=== PATIENT | female | born 1955 | race Caucasian/White ===

== ENCOUNTER 2022-03-05 17:53 | Inpatient (IN) | payer MEDICARE, BC, SELFPAY ==
[2022-03-05] VITALS (14 sets, daily range): BP systolic 131–163; BP diastolic 51–85; PULSE 68–87; RESP 11–18; TEMP 36.4–37.2; O2SAT 92–100; BMI 30.5; BMI 33.7
--- NOTE | 2022-03-05 15:17 | P.HP_ITS ---
H&P: HPI History of Present Illness Date/Time: 03/05/22 15:17 Chief Complaint: Surgical site abscess right arm Narrative: this site was operated 02/24/2022 in my office for removal of the basal cell carcinoma measuring nearly 2 cm in diameter. The wound was closed directly. In the next couple of days the patient began to have swelling and redness that exceeded the operative site. She has had some purulence drainage. She has been started on Bactrim on March 02 and has had approximately 6 doses. She thought it made her feel better. Today she came to my office for follow-up evaluation and had persistence of cloudy drainage. Sutures were removed and some pus was drained. Cultures were sent to [facility] for aerobes. The site was copiously irrigated but it seemed that the extent of the cellulitis and possibly the abscess that exceeded a reach without anesthesia. She agreed to go to the operating room today and to have this further explored and drained under general anesthesia. She is aware that an additional dependent drain site may be needed. is possible she may need to stay in hospital overnight for more. She her had plans to go to [facility] and 5 days and then may need to cancel that. Review of Systems Review of Systems: The patient is otherwise healthy and very active. PMFSH Comments She this patient has no known allergies to medication. She currently takes escitalopram 5 mg once daily. And atorvastatin 20 mg once daily. She has had no other surgeries. She was diagnosed with Guillain-[place] syndrome in 1991. And recovered Exam Narrative: This patient is alert and cooperative. She had had some emesis a few days ago. She has not had any fever. The right arm is moderately swollen. There is moderate erythema and distal half. There is local tenderness. The 5 cm surgical site has been partially reopened. There remains some purulence of phlegmonous tissue within the wound. Her hand functions normally and she is able to flex and extend the elbow. She was able to tolerate multiple compressions and irrigations in attempt to remove the pus. Assessment and Plan Assessment and plan (1) Surgical site infection: Code(s): T81.49XA - Infection following a procedure, other surgical site, initial encounter Status: Acute Assessment and Plan: Pt is on day 4 of Bactrim. (2) Abscess of arm, right: Code(s): L02.413 - Cutaneous abscess of right upper limb Status: Acute Plan I&D in the OR under general anesthesia.
[2022-03-05] MEDS: LACTATED RINGERS 1,000 ML 30 ML IV CONT ×2 (15:50→17:29)
--- NOTE | 2022-03-05 15:58 | WPDANESEPPF ---
Anes - Initial Pre Proc Eval Procedure: Operation Date: 03/05/22 16:00 Proposed Procedures p Incision and Drainage Right Arm - Gen Botello MD Date/Time: 03/05/22 15:58 Surgeon: Gen Botello MD Pre Op Diagnosis: abscess right arm Patient Data Age: 66 Gender: F Height: Weight: Last Vital Signs Temp 36.4 C 03/05/22 15:40 Pulse 82 03/05/22 15:40 Resp 16 03/05/22 15:40 BP 143/56 H 03/05/22 15:40 Pulse Ox 99 03/05/22 15:40 O2 Del Method Room Air 03/05/22 15:40 Allergies Allergy/AdvReac Type Severity Reaction Status Date / Time No Known Allergies Allergy Verified 03/05/22 15:48 Patient hx anesthesia problems: none Family hx anesthesia problems: none Results Review: All pre-operative results and documents have been reviewed as part of the pre-operative evaluation. FOR[facility]LY [facility] Past Medical History Medical History (Updated 03/05/22 @ 15:58 by Dom Fitzgerald MD) Obesity Surgical History Surgical History (Updated 03/05/22 @ 15:58 by Dom Fitzgerald MD) H/O colonoscopy Anes - Eval Final PreProcedure Day of Procedure 03/05/22 15:58 Patient weight: obese Heart: regular rate and rhythm Lungs: clear to auscultation Airway: Mallampati scale class II Neurological: alert and oriented Last oral intake: 6 hours ASA classification: II Emergent: no Anesthetic plan: proceed Anesthesia type and monitoring: general ETT and standard monitoring Results Review: All pre-operative results and documents have been reviewed as part of the pre-operative evaluation. Informed Consent: The patient's anesthetic plan and its attendant risks and benefits were discussed with the patient/family/POA. Questions were solicited and answers provided to the satisfaction of the patient/family/POA.
[2022-03-05] MEDS: LIDO 2%/EPINEPHRINE 1:100,000 50 ML VIAL 10 ML INFILTRATE (16:29)
--- NOTE | 2022-03-05 17:10 | W.PM.PROC2 ---
Procedure Note - Detailed Date of Procedure 03/05/22 Pre-op Diagnosis abscess right arm Post-op Diagnosis Same Procedure Performed I&D extensive subcutaneous abscess right lateral and posterior arm. Surgeon Gen Botello MD Anesthesia General Indications abscess Description of Procedure The patient brought to the hospital operating room from the office today where she was seen on postop day 8 and after having had excision of a 2 cm basal cell carcinoma with immediate closure. By postop day 3 she had swelling erythema and tenderness and some small drainage. She was started on Bactrim that day the Bactrim a few days later and immediately felt better. To days later she presented with purulent drainage that we attempted to evacuate in the office. It proved to be too large to task for that setting without anesthesia. At the hospital today she was marked in the holding area on her right arm for this procedure. She was taken to the operating room placed supine on the operating table. She was given general endotracheal anesthesia. The extremity is prepped and draped in usual fashion. No tourniquet was utilized. The remaining sutures removed from the surgical site these were buried Vicryl that seemed to be intact. Despite the drainage of about 15 milliliter of yellow pus in the office, an additional equal amount was drained at surgery. This was divided into 3 areas. Two of these required counter incisions to access and irrigate. No cultures were taken from the OR. She was given vancomycin 1 g preop . After removing sutures from the surgical site the pus was drained and the pocket digitally examined. This was found to extend 2.5 cm cephalad to the skin wound margin but more than that distally. I was able to track that to a site about 3 cm above the olecranon where it seemed to stop. A vertical counter incision was made there. This area was then irrigated and surfaces debrided with Ray-Domingo sponges. An area of induration more laterally was identified. A 1 and 1/2 cm incision was made at that site and pus was encountered. This wound was extended to about 3 cm and was eventually connected with the other wounds by digital dissection through subcutaneous tissue. All the sites were irrigated wiped with Ray-Domingo sponges and aspirated with the Sarthakkauer sucker. No tourniquet was utilized. Some bleeding points were cauterized from the skin edges. 3 ft of 1 in iodoform gauze was placed as a single piece, subcutaneously connecting all of these sites. ABDs and Kerlix sponges and roll were placed over that, no Griffin wrap. She was extubated the sponge count were correct and she was discharged from the operating to the PACU. Estimated Blood Loss 50 Tourniquet Time 0 Drains No Packing Yes (3 feet of 1 in Iodoform gauze in 1 piece.) Pathology Other (Culture pending at [facility] from today at my office.) Complications No immediate complications Condition Stable Disposition PACU
[2022-03-05] MEDS: MIDAZOLAM HCL (*CRX) 2 MG/2 ML VIAL 1 MG IV PUSH (17:12)
[2022-03-05] MEDS: fentaNYL CITRATE INJ (*CRX) 100 MCG/2 ML VIAL 25 MCG IV PUSH ×8 (17:17→18:24)
--- NOTE | 2022-03-05 20:21 | ADMGEN ---
This patient, Carrie Cisneros, was admitted to Medical Room 342-01. Patient/family oriented to hospital policies and general routines including ID bracelet, bed and alarms, visiting hours, pain management, procedures, bathroom and other care routines, personal items, smoking policy, room service/diet, and visiting hours. Information on how to activate the Rapid Response Team has been discussed. Patient/Family are encouraged to report perceived risks to care and to ask questions if they do not understand what they are told or what they should do.
[2022-03-05 20:33] LABS: Estimated CRCL calculation 63 ml/min; Estimated Glomerular Filt Rate > 60
[2022-03-05] MEDS: ACETAMINOPHEN 325 MG TABLET 650 MG PO (20:38)
[2022-03-05] MEDS: ceFAZolin 2 GM/D5W 50 ML 2 GM/50 ML BAG IVPB (20:39)
[2022-03-05] MEDS: LACTATED RINGERS 1,000 ML 100 ML IV CONT (20:39)
[2022-03-06 00:20] VITALS: BP 112/53; PULSE 65; RESP 18; TEMP 36.6; O2SAT 95
[2022-03-06] MEDS: ceFAZolin 2 GM/D5W 50 ML 2 GM/50 ML BAG IVPB ×3 (04:01→22:21)
[2022-03-06] MEDS: ACETAMINOPHEN 325 MG TABLET 650 MG PO ×4 (04:50→23:30)
[2022-03-06 05:09] VITALS: BP 118/76; PULSE 73; RESP 18; TEMP 36.6; O2SAT 97
[2022-03-06 05:40] LABS: Basophils Percent Auto 0.3 % (0.2-1.2); Eosinophils Percent Auto 0.1 % (0-4.4); Hematocrit 31.3 % (37.0-47.0); Hemoglobin 10.3 g/dL (12.0-15.0); Immature Granulocyte Absolute 0.16 K/mm3 (0.00-0.031); Immature Granulocyte Percent A 1.4 % (0-0.5); Lymphocytes Absolute Auto 1.46 K/mm3 (0.9-3.2); Lymphocytes Percent Auto 12.7 % (18.3-44.2); Mean Corpuscular HGB Conc 32.9 g/dl (32-36); Mean Corpuscular Volume 91.3 fl (80-100); Mean Platelet Volume 9.5 fl (7.4-10.4); Monocytes Absolute Auto 0.5 K/mm3 (0.1-0.6); Monocytes Percent Auto 4.4 % (2.6-8.5); Neutrophils Absolute Auto 9.3 K/mm3 (1.3-6.7); Neutrophils Percent Auto 81.1 % (45.5-73.1); Platelet Count Result 334 k/mm3 (150-375); Red Blood Count 3.43 M/mm3 (4.2-5.4); Red Cell Distribution Width 12.3 % (11.5-14.5); White Blood Count 11.5 K/mm3 (4.5-10.0)
--- NOTE | 2022-03-06 07:19 | WPDPN ---
Progress Note: A&P Assessment and Plan (1) Abscess of arm, right: Code(s): L02.413 - Cutaneous abscess of right upper limb Status: Acute Assessment and Plan: With a history of excision of ulcerated BCC as a possible source of infection, I believe coverage for E. coli is indicated until culture results are available. Will add Zosyn and consult Pharmacy. (2) Surgical site infection: Code(s): T81.49XA - Infection following a procedure, other surgical site, initial encounter Status: Acute Time Spent With Patient Time with patient: less than 15 minutes Subjective Date/time seen: 03/06/22 07:19 Interval history: Pt reports feeling much better today. Moves hand and elbow freely. No problems from general anesthesia. Exam Narrative: Afebrile. WBC 11.5 No significant overnight drainage. [place] spotting. Culture pending from my office 03/05. Tolerating IV Vanco and Cefazolin. Objective Data Vital Signs Vital Signs: Vital Signs - 24 hr 03/05/22 15:40 03/05/22 17:03 03/05/22 17:15 Temperature 97.6 F 98 F Pulse Rate 82 86 73 Respiratory Rate 16 14 11 L Blood Pressure 143/56 H 163/72 H 156/82 H Pulse Oximetry 99 99 100 Oxygen Delivery Room Air Simple Face Mask Simple Face Mask Oxygen Flow Rate 10 10 03/05/22 17:35 03/05/22 17:50 03/05/22 18:05 Temperature Pulse Rate 76 71 69 Respiratory Rate 11 L 15 11 L Blood Pressure 149/85 H 143/75 H 150/75 H Pulse Oximetry 92 99 99 Oxygen Delivery Room Air Nasal Cannula Nasal Cannula Oxygen Flow Rate 2 2 03/05/22 18:22 03/05/22 18:35 03/05/22 18:50 Temperature Pulse Rate 71 68 69 Respiratory Rate 12 11 L 12 Blood Pressure 150/85 H 149/79 H 135/79 Pulse Oximetry 99 97 98 Oxygen Delivery Room Air Nasal Cannula Nasal Cannula Oxygen Flow Rate 2 2 03/05/22 19:05 03/05/22 20:29 03/05/22 19:43 Temperature 98.2 F Pulse Rate 69 72 Respiratory Rate 14 18 Blood Pressure 140/78 131/72 Pulse Oximetry 99 100 Oxygen Delivery Nasal Cannula Room Air Oxygen Flow Rate 2 03/05/22 19:58 03/05/22 20:28 03/05/22 21:20 Temperature 98.5 F 98.1 F 99 F Pulse Rate 75 87 76 Respiratory Rate 18 18 16 Blood Pressure 149/77 H 140/61 132/51 L Pulse Oximetry 98 95 93 Oxygen Delivery Oxygen Flow Rate 03/06/22 00:20 03/06/22 05:09 Temperature 97.9 F 97.9 F Pulse Rate 65 73 Respiratory Rate 18 18 Blood Pressure 112/53 L 118/76 Pulse Oximetry 95 97 Oxygen Delivery Oxygen Flow Rate Intake/Output Intake/Output: Intake & Output 03/03/22 03/04/22 03/05/22 03/06/22 23:59 23:59 23:59 23:59 Intake Total 1100 500 Output Total 400 Balance 1100 100 Meds/Results Medications: Active Medications Generic Name Dose Route Start Last Admin Trade Name Freq PRN Reason Stop Dose Admin Acetaminophen 650 mg 03/05/22 19:14 03/06/22 04:50 Acetaminophen 325 Mg Tablet PO 650 mg Q4H PRN Administration Mild Pain (1-3) or Fever Hydrocodone Bitart/Acetaminophen 1 tab 03/05/22 19:14 Hydrocodone/Acetaminophen (*Crx) 5-325 Mg Tablet PO Q4H PRN Moderate Pain (4-6) Atorvastatin Calcium 20 mg 03/06/22 09:00 Atorvastatin 20 Mg Tablet PO DAILY CHARIS Lactated Ringer's 1,000 mls @ 100 mls/hr 03/05/22 19:14 03/05/22 20:39 Lr - Lactated Ringers Iv IV CONT 100 mls/hr .Q10H CHARIS Administration Cefazolin Sodium 2 gm in 50 mls @ 100 mls/hr 03/05/22 21:00 03/06/22 04:31 Ancef 2 Gm/D5w 50 Ml IVPB Infused Q8H CHARIS Infusion Vancomycin HCl 1,250 mg in 250 mls @ 200 mls/hr 03/06/22 04:00 03/06/22 05:57 Vancomycin 1,250 Mg/D5w 250 Ml IVPB Infused Q18H CHARIS Infusion Morphine Sulfate 2 mg 03/05/22 19:14 Morphine Sulfate (*Crx) 2 Mg/Ml Inj IV PUSH Q4H PRN Pain Rated 7-10 Ondansetron HCl 4 mg 03/05/22 19:14 Ondansetron Inj 4 Mg/2 Ml Vial IV PUSH Q6H PRN Nausea And Vomiting Labs Labs: Laboratory Results - last 24 hr
[2022-03-06 08:00] VITALS: BP 119/57; PULSE 63; RESP 18; TEMP 36.8; O2SAT 96
[2022-03-06] MEDS: LACTATED RINGERS 1,000 ML 100 ML IV CONT (08:29)
[2022-03-06] MEDS: ATORVASTATIN 20 MG TABLET PO (08:30)
--- NOTE | 2022-03-06 08:34 | IDPHARM ---
Subjective Pharmacy was consulted by Usha Botello regarding infectious diseases for Carrie Cisneros. Carrie Cisneros is a 66 year old F with concerns regarding an abscess that has undergone drainage in the arm. Background The patient is currently receiving Cefazolin/Zosyn/Vancomycin. The patient's PMH includes this abscess occurring quite quickly after a carcinoma from being removed from the area per the provider. Additionally, the patient underwent drainage for this abscess yesterday 03/05 and also had drainage done in the outpatient side as well on 03/05. Of note, the outpatient visit resulted in some pus drainage and swab of that being sent to [facility] for culturing. Discussed with [facility] as currently I am unable to see the culture in [facility]. Culture is located under Micro#[id number] when speaking to the Micro dept. for [facility] [employer]. Currently no results, the do expect preliminary results 11/5 AM. WBC 11.5, CrCl 63 mL/min. Assessment/Recommendation/Discussion Discussed with provider regarding this patient. Of note, E coli and MRSA are desired to be covered and as Pseudomonal coverage was not needed provide agreed that ceftriaxone 2g daily would be appropriate for this patient over Zosyn. Will follow up on this culture (Micro # [id number]) and look to further discuss level of source control and potential discharge/de-escalation options at that time with provider. Unsure on provider's desired duration of cefazolin, given other coverages initiated, extending beyond 24 hours post-op may be unnecessary given the ceftriaxone and vancomycin. Thank you for the interesting consult. Matt Christine, PharmD Infectious Disease/Antimicrobial Stewardship Pharmacist 03/06/22; 0834
[2022-03-06] MEDS: cefTRIAXone 2 GM in SODIUM CHLORIDE 0.9% IV 100 ML 200 ML IVPB (10:53)
[2022-03-06 14:00] VITALS: BP 131/53; PULSE 74; RESP 16; TEMP 36.9; O2SAT 99
--- NOTE | 2022-03-06 14:40 | WPDANESPN ---
Anes - Prog Note Post-Op Date/Time: 03/06/22 14:40 Cardiovascular status: normal Respiratory status: normal Airway patency: baseline Mental status: baseline Post-Op hydration status: normal Vital Signs: Last Vital Signs Temp 36.8 C 03/06/22 08:00 Pulse 63 03/06/22 08:00 Resp 18 03/06/22 08:00 BP 119/57 L 03/06/22 08:00 Pulse Ox 96 03/06/22 08:00 O2 Del Method Room Air 03/06/22 08:00 O2 Flow Rate 2 03/05/22 19:05 Pain Score (VAS): 06/12 I/O: Intake & Output 03/05/22 03/06/22 03/06/22 23:59 07:59 15:59 Intake Total 1100 1500 1110 Output Total 400 Balance 1100 1100 1110 Laboratory Tests 03/06/22 05:25 03/05/22 20:17 03/05/22 03/06/22 20:17 05:25 WBC 11.5 H RBC 3.43 L Hgb 10.3 L Hct 31.3 L MCV 91.3 MCH 30.0 MCHC 32.9 RDW 12.3 Plt Count 334 MPV 9.5 Immature Gran % (Auto) 1.4 H Neut % (Auto) 81.1 H Lymph % (Auto) 12.7 L [place] % (Auto) 4.4 Eos % (Auto) 0.1 Baso % (Auto) 0.3 Lymph # (Auto) 1.46 [place] # (Auto) 0.5 Eos # (Auto) 0.0 Baso # (Auto) 0.0 Abs Immat Gran (auto) 0.16 H Absolute Neuts (auto) 9.3 H Absolute Nucleated RBC 0.0 Nucleated RBC % 0.0 Creatinine 0.80 Estim Creat Clear Calc 63 Estimated GFR > 60 Post-procedural complaints: none Patient Feedback: Patient satisfied with anesthetic care.
--- NOTE | 2022-03-06 16:20 | PC.NURSE ---
Drainage to wound seeping through the initial dressing by Rosmery. RN reinforced dressing with gauze pads, abd, and gauze rolls. Pt to get wash out and dressing change of the wound by Rosmery tomorrow at 0730.
[2022-03-06 19:16] VITALS: BP 110/73; PULSE 72; RESP 18; TEMP 37; O2SAT 98
[2022-03-07] VITALS (14 sets, daily range): BP systolic 122–151; BP diastolic 60–76; PULSE 56–75; RESP 10–18; TEMP 35.3–36.6; O2SAT 94–100
[2022-03-07] MEDS: ceFAZolin 2 GM/D5W 50 ML 2 GM/50 ML BAG IVPB (05:50)
--- NOTE | 2022-03-07 07:40 | WPDANESEPPF ---
Anes - Initial Pre Proc Eval Procedure: Operation Date: 03/05/22 16:00 Proposed Procedures p Incision and Drainage Right Arm - Gen Botello MD Operation Date: 03/07/22 07:30 Proposed Procedures p Washout and Dressing Change Right Arm - Gen Botello MD Date/Time: 03/07/22 07:40 Surgeon: Gen Botello MD Pre Op Diagnosis: abscess right arm Patient Data Age: 66 Gender: F Height: 1.6 m Weight: 86.5 kg Last Vital Signs Temp 36.6 C 03/07/22 04:21 Pulse 67 03/07/22 04:21 Resp 18 03/07/22 04:21 BP 130/66 03/07/22 04:21 Pulse Ox 96 03/07/22 04:21 O2 Del Method Room Air 03/06/22 20:00 O2 Flow Rate 2 03/05/22 19:05 Allergies Allergy/AdvReac Type Severity Reaction Status Date / Time No Known Allergies Allergy Verified 03/05/22 15:48 Home Medications Medication Instructions Recorded Confirmed Type atorvastatin 20 mg tablet 20 mg PO DAILY 03/05/22 03/05/22 History sulfamethoxazole 800 1 tablet PO BID 03/05/22 03/05/22 History mg-trimethoprim 160 mg tablet Patient hx anesthesia problems: none Family hx anesthesia problems: none Results Review: All pre-operative results and documents have been reviewed as part of the pre-operative evaluation. [facility] Past Medical History Medical History Obesity Surgical History Surgical History H/O colonoscopy Family History Family History Father Acute myocardial infarction History of blood clots Congestive heart failure Diabetes mellitus Sibling Acute myocardial infarction Cerebrovascular accident Colon cancer Uterine cancer Mother Congestive heart failure Diabetes mellitus Hypertension Breast cancer Social History Social History Smoking status: Never smoker Alcohol intake: never Substance use: never Has the Lack of Transportation Kept You From Medical Appointments or From Getting Medications?: No Within the Past 12 Months, Were You Worried Whether Your Food Would Run Out Before You Got Money to Buy More?: Never True What is Your Housing Situation Today?: I Have Housing Are You Worried That in the Next 2 Months, You May Not Have Your Own Housing to Live In?: No Do You Have Trouble Paying Your Heating Or Electricity Bill?: No Do You Have Trouble Paying For Medicines?: No Are You Currently Unemployed and Looking for Work?: No Highest Level of Education Completed: High School Diploma/GED Do You Have Trouble With Childcare or the Care of a Family Member?: No Spiritual care concerns: No Anes - Eval Final PreProcedure Day of Procedure 03/07/22 07:40 Patient weight: obese Heart: regular rate and rhythm Lungs: clear to auscultation Airway: Mallampati scale class II Neurological: alert and oriented Last oral intake: >/= 8 hours ASA classification: II Emergent: no Anesthetic plan: proceed Anesthesia type and monitoring: general LMA and standard monitoring Results Review: All pre-operative results and documents have been reviewed as part of the pre-operative evaluation. Informed Consent: The patient's anesthetic plan and its attendant risks and benefits were discussed with the patient/family/POA. Questions were solicited and answers provided to the satisfaction of the patient/family/POA.
--- NOTE | 2022-03-07 07:42 | WPDPN ---
Progress Note: A&P Assessment and Plan (1) Abscess of arm, right: Code(s): L02.413 - Cutaneous abscess of right upper limb Status: Acute Plan Second washout and dressing change under general anesthesia. Time Spent With Patient Time with patient: less than 15 minutes Subjective Date/time seen: 03/07/22 07:42 Interval history: Pt feeling well today. No significant drainage from wound . Pain has been easily controlled past 24 hrs by Tylenol Objective Data Vital Signs Vital Signs: Vital Signs - 24 hr 03/06/22 08:00 03/06/22 08:00 03/06/22 14:00 Temperature 98.3 F 98.5 F Pulse Rate 63 74 Respiratory Rate 18 16 Blood Pressure 119/57 L 131/53 L Pulse Oximetry 96 99 Oxygen Delivery Room Air 03/06/22 19:16 03/06/22 20:00 03/07/22 04:21 Temperature 98.6 F 97.8 F Pulse Rate 72 67 Respiratory Rate 18 18 Blood Pressure 110/73 130/66 Pulse Oximetry 98 96 Oxygen Delivery Room Air Intake/Output Intake/Output: Intake & Output 03/04/22 03/05/22 03/06/22 03/07/22 23:59 23:59 23:59 23:59 Intake Total 1100 3150 50 Output Total 600 250 Balance 1100 2550 -200 Meds/Results Medications: Active Medications Generic Name Dose Route Start Last Admin Trade Name Freq PRN Reason Stop Dose Admin Acetaminophen 650 mg 03/05/22 19:14 03/06/22 23:30 Acetaminophen 325 Mg Tablet PO 650 mg Q4H PRN Administration Mild Pain (1-3) or Fever Hydrocodone Bitart/Acetaminophen 1 tab 03/05/22 19:14 Hydrocodone/Acetaminophen (*Crx) 5-325 Mg Tablet PO Q4H PRN Moderate Pain (4-6) Atorvastatin Calcium 20 mg 03/06/22 09:00 03/06/22 08:30 Atorvastatin 20 Mg Tablet PO 20 mg DAILY CHARIS Administration Fentanyl Citrate 25 mcg 03/07/22 07:40 Fentanyl Citrate Inj (*Crx) 100 Mcg/2 Ml Vial IV PUSH Q2M PRN Pain Cefazolin Sodium 2 gm in 50 mls @ 100 mls/hr 03/05/22 21:00 03/07/22 06:29 Ancef 2 Gm/D5w 50 Ml IVPB Infused Q8H CHARIS Infusion Vancomycin HCl 1,250 mg in 250 mls @ 200 mls/hr 03/06/22 04:00 03/06/22 23:35 Vancomycin 1,250 Mg/D5w 250 Ml IVPB Infused Q18H CHARIS Infusion Ceftriaxone Sodium 2 gm/ 100 mls @ 200 mls/hr 03/06/22 09:00 03/06/22 11:40 Sodium Chloride IVPB Infused Q24H CHARIS Infusion Lactated Ringer's 1,000 mls @ 30 mls/hr 03/07/22 07:40 Lr - Lactated Ringers Iv IV CONT .Q24H CHARIS Lactated Ringer's 1,000 mls @ 30 mls/hr 03/07/22 07:40 Lr - Lactated Ringers Iv IV CONT .Q24H [facility] Morphine Sulfate 2 mg 03/05/22 19:14 Morphine Sulfate (*Crx) 2 Mg/Ml Inj IV PUSH Q4H PRN Pain Rated 7-10 Ondansetron HCl 4 mg 03/05/22 19:14 Ondansetron Inj 4 Mg/2 Ml Vial IV PUSH Q6H PRN Nausea And Vomiting Ondansetron HCl 4 mg 03/07/22 07:40 Ondansetron Inj 4 Mg/2 Ml Vial IV PUSH ONCE PRN Nausea
[2022-03-07] MEDS: LACTATED RINGERS 1,000 ML 30 ML IV CONT (07:55)
[2022-03-07] MEDS: fentaNYL CITRATE INJ (*CRX) 100 MCG/2 ML VIAL 25 MCG IV PUSH ×7 (09:04→09:38)
--- NOTE | 2022-03-07 09:10 | W.PM.PROC2 ---
Procedure Note - Detailed Date of Procedure 03/07/22 Pre-op Diagnosis abscess right arm Post-op Diagnosis Same Procedure Performed Second washout and dressing change, subcutaneous abscess of the right arm Surgeon Gen Botello MD Assistant Director Of [employer] [place] Anesthesia General Indications 10 x 20 cm subcutaneous abscess the right arm Description of Procedure The patient was greeted in the PACU prior to today's surgery and the site was marked. She indicated that she was quite comfortable. Her arm felt much better. She was taken to the operating room where she was placed supine on the operating table and she was given general endotracheal anesthesia. The extremity was prepped and draped in usual fashion. No tourniquet was used. The existing dressing was removed. A small amount of purulence drained from the most dependent aspect of the larger wound. The 3 skin openings were irrigated with approximately 1000 L of saline. The jacobs of abscess were debrided with Raytec sponges. Another L of saline was irrigated through these areas. It appeared that the original wound lay most posterior. Phlegmonous tissue was found proximal to that and there was less integrity of tissue to digital exploration. We made 1 additional counter incision approximately 2 cm in length over the most superior aspect of that portion of the cavity. The purpose was to allow placement of a [place] drain in that area to prevent collection of purulence at bed rest. Approximately 4 L of solution were irrigated through these wounds with frequent Kerlix sponge debridement. We also used the larger angled curette to scrape the jacobs. When I was satisfied that there was no loose debris left in this subcutaneous space we selected dressings. There are 2 pieces of 1 in iodoform gauze. 1 connects the most distal to the most anterior counter incisions placed at the last surgery. There is approximately 3 ft of gauze in that and the ends were tied together outside the skin. The 2nd piece of 1 in iodoform was placed in the larger original abscess site and passed in layers in 2 directions to partially fill cavernous tracks in the direction of 2 aforementioned counter incisions. This piece of iodoform was visible only through the larger original wound and is expected to be removed from that site. There was approximately 4 ft of iodoform comprising that piece. A 1 in [place] drain was passed through the larger wound and exited from the new superior counter incision and tied to itself outside the skin. There was no continuous bleeding. Estimated blood loss was around 50 milliliter. Estimated Blood Loss 50 Tourniquet Time 0 Urine Output 250 Drains Yes Packing Yes Pathology None sent Complications No immediate complications Condition Stable Disposition PACU
[2022-03-07] MEDS: HYDROmorphone HCL INJ (*CRX) 1 MG/ML SYR 0.25 MG IV PUSH ×6 (09:35→10:07)
[2022-03-07] MEDS: cefTRIAXone 2 GM in SODIUM CHLORIDE 0.9% IV 100 ML 200 ML IVPB (12:02)
[2022-03-07] MEDS: ACETAMINOPHEN 325 MG TABLET 650 MG PO (16:58)
[2022-03-07] MEDS: ONDANSETRON INJ 4 MG/2 ML VIAL IV PUSH (20:11)
[2022-03-07] MEDS: HYDROcodone/acetaminophen (*CRX) 5-325 MG TABLET 1 TAB PO (20:12)
--- NOTE | 2022-03-08 01:36 | PC.NURSE ---
Daylight Savings Time For Daylight Savings Time Ending in the Fall - Clocks are moved back. For Daylight Savings Time Beginning in the Spring - Clocks are moved ahead. For [facility], the time of change occurs at 0200 hrs. Time is taken from the field observer. This entry on the patient's chart recognizes the change in time reflected during documentation. Example: 2 entries for vital signs may be charted for 0200 hrs.
[2022-03-08] MEDS: HYDROcodone/acetaminophen (*CRX) 5-325 MG TABLET 1 TAB PO ×3 (04:23→21:56)
[2022-03-08] MEDS: ONDANSETRON INJ 4 MG/2 ML VIAL IV PUSH (04:24)
[2022-03-08 04:47] VITALS: BP 128/63; PULSE 79; RESP 18; TEMP 36.6; O2SAT 96
[2022-03-08] MEDS: ATORVASTATIN 20 MG TABLET PO (09:33)
[2022-03-08] MEDS: cefTRIAXone 2 GM in SODIUM CHLORIDE 0.9% IV 100 ML 200 ML IVPB (09:35)
--- NOTE | 2022-03-08 13:18 | WPDPN ---
Progress Note: A&P Assessment and Plan (1) Abscess of arm, right: Code(s): L02.413 - Cutaneous abscess of right upper limb Status: Acute Assessment and Plan: Area well drained. Concerned for phlegmonous tissue lining the jacobs. Will likely need additional washout and dressing change. Time Spent With Patient Time with patient: less than 15 minutes Subjective Date/time seen: 03/08/22 13:18 Interval history: Has more pain today and has been taking hydrocodone. Taking diet well. Exam Narrative: Dressing has been changed a couple times since surgery. No erythema. Sensation intact to all areas. Hand and arm move well. Dressing changed by me. Some bloody drainage in the most dependent, larger wound. 8 inches of 1inch Iodoform pulled out painlessly from that area. No areas of induration identified. Will check in office today for culture results. Objective Data Vital Signs Vital Signs: Vital Signs - 24 hr 03/07/22 16:00 03/07/22 19:29 03/07/22 20:00 Temperature 97.9 F 97.7 F Pulse Rate 73 73 Respiratory Rate 16 18 Blood Pressure 137/67 139/63 Pulse Oximetry 100 96 Oxygen Delivery Room Air 03/08/22 04:47 Temperature 98 F Pulse Rate 79 Respiratory Rate 18 Blood Pressure 128/63 Pulse Oximetry 96 Oxygen Delivery Intake/Output Intake/Output: Intake & Output 03/05/22 03/06/22 03/07/22 03/08/22 23:59 23:59 23:59 22:59 Intake Total 1100 3150 800 590 Output Total 600 500 Balance 1100 2550 300 590 Meds/Results Medications: Active Medications Generic Name Dose Route Start Last Admin Trade Name Freq PRN Reason Stop Dose Admin Acetaminophen 650 mg 03/05/22 19:14 03/07/22 16:58 Acetaminophen 325 Mg Tablet PO 650 mg Q4H PRN Administration Mild Pain (1-3) or Fever Hydrocodone Bitart/Acetaminophen 1 tab 03/05/22 19:14 03/08/22 04:23 Hydrocodone/Acetaminophen (*Crx) 5-325 Mg Tablet PO 1 tab Q4H PRN Administration Moderate Pain (4-6) Atorvastatin Calcium 20 mg 03/06/22 09:00 03/08/22 09:33 Atorvastatin 20 Mg Tablet PO 20 mg DAILY CHARIS Administration Ceftriaxone Sodium 2 gm/ 100 mls @ 200 mls/hr 03/06/22 09:00 03/08/22 10:05 Sodium Chloride IVPB Infused Q24H CHARIS Infusion Vancomycin HCl 1,250 mg in 250 mls @ 200 mls/hr 03/07/22 17:00 03/08/22 05:58 Vancomycin 1,250 Mg/D5w 250 Ml IVPB Infused Q12H CHARIS Infusion Morphine Sulfate 2 mg 03/05/22 19:14 Morphine Sulfate (*Crx) 2 Mg/Ml Inj IV PUSH Q4H PRN Pain Rated 7-10 Ondansetron HCl 4 mg 03/05/22 19:14 03/08/22 04:24 Ondansetron Inj 4 Mg/2 Ml Vial IV PUSH 4 mg Q6H PRN Administration Nausea And Vomiting Labs Labs: Laboratory Results - last 24 hr 03/07/22 14:50 Vancomycin Trough 9.0 L
[2022-03-08 15:39] VITALS: BP 147/70; PULSE 82; RESP 16; TEMP 36.9; O2SAT 93
[2022-03-08 21:37] VITALS: BP 118/63; PULSE 81; RESP 14; TEMP 37.2; O2SAT 98
[2022-03-09] VITALS (12 sets, daily range): BP systolic 133–160; BP diastolic 47–79; PULSE 53–89; RESP 10–16; TEMP 36.1–37.1; O2SAT 93–100
[2022-03-09 04:27] LABS: Estimated CRCL calculation 71 ml/min; Estimated Glomerular Filt Rate > 60
[2022-03-09 05:03] LABS: Vancomycin Trough 14.8 ug/mL (10.0-20.0)
[2022-03-09] MEDS: HYDROcodone/acetaminophen (*CRX) 5-325 MG TABLET 1 TAB PO ×3 (06:02→22:12)
[2022-03-09] MEDS: ATORVASTATIN 20 MG TABLET PO (09:05)
[2022-03-09] MEDS: cefTRIAXone 2 GM in SODIUM CHLORIDE 0.9% IV 100 ML 200 ML IVPB (09:05)
[2022-03-09] MEDS: LACTATED RINGERS 1,000 ML 30 ML IV CONT ×2 (13:02→15:00)
--- NOTE | 2022-03-09 13:30 | WPDANESEPPF ---
Anes - Initial Pre Proc Eval Procedure: Operation Date: 03/05/22 16:00 Proposed Procedures p Incision and Drainage Right Arm - Gen Botello MD Operation Date: 03/07/22 07:30 Proposed Procedures p Washout and Dressing Change Right Arm - Gen Botello MD Operation Date: 03/09/22 13:30 Proposed Procedures p Washout And Dressing Change Right Upper Arm - Gen Botello MD Date/Time: 03/09/22 13:30 Surgeon: Gen Botello MD Pre Op Diagnosis: abscess right arm Patient Data Age: 66 Gender: F Height: 1.6 m Weight: 86.5 kg Last Vital Signs Temp 36.8 C 03/09/22 12:50 Pulse 79 03/09/22 12:50 Resp 16 03/09/22 12:50 BP 145/65 H 03/09/22 12:50 Pulse Ox 100 03/09/22 12:50 O2 Del Method Room Air 03/09/22 12:50 O2 Flow Rate 2 03/07/22 10:25 Allergies Allergy/AdvReac Type Severity Reaction Status Date / Time No Known Allergies Allergy Verified 03/05/22 15:48 Home Medications Medication Instructions Recorded Confirmed Type atorvastatin 20 mg tablet 20 mg PO DAILY 03/05/22 03/05/22 History sulfamethoxazole 800 1 tablet PO BID 03/05/22 03/05/22 History mg-trimethoprim 160 mg tablet Laboratory Tests 03/09/22 03/09/22 04:08 04:08 Creatinine 0.70 mg/dL mg/dL (0.7-1.0) Estim Creat Clear Calc 71 ml/min ml/min Estimated GFR > 60 (59 - ) Vancomycin Trough 14.8 ug/mL ug/mL (10.0-20.0) Patient hx anesthesia problems: none Family hx anesthesia problems: none Results Review: All pre-operative results and documents have been reviewed as part of the pre-operative evaluation. [facility] Past Medical History Medical History Obesity Surgical History Surgical History H/O colonoscopy Family History Family History Father Acute myocardial infarction History of blood clots Congestive heart failure Diabetes mellitus Sibling Acute myocardial infarction Cerebrovascular accident Colon cancer Uterine cancer Mother Congestive heart failure Diabetes mellitus Hypertension Breast cancer Social History Social History Smoking status: Never smoker Alcohol intake: never Substance use: never Has the Lack of Transportation Kept You From Medical Appointments or From Getting Medications?: No Within the Past 12 Months, Were You Worried Whether Your Food Would Run Out Before You Got Money to Buy More?: Never True What is Your Housing Situation Today?: I Have Housing Are You Worried That in the Next 2 Months, You May Not Have Your Own Housing to Live In?: No Do You Have Trouble Paying Your Heating Or Electricity Bill?: No Do You Have Trouble Paying For Medicines?: No Are You Currently Unemployed and Looking for Work?: No Highest Level of Education Completed: High School Diploma/GED Do You Have Trouble With Childcare or the Care of a Family Member?: No Spiritual care concerns: No Anes - Eval Final PreProcedure Day of Procedure 03/09/22 13:30 Patient weight: obese Heart: regular rate and rhythm Lungs: clear to auscultation Airway: Mallampati scale class II Neurological: alert and oriented Last oral intake: >/= 8 hours ASA classification: II Emergent: no Anesthetic plan: proceed Anesthesia type and monitoring: general LMA and standard monitoring Results Review: All pre-operative results and documents have been reviewed as part of the pre-operative evaluation. Informed Consent: The patient's anesthetic plan and its attendant risks and benefits were discussed with the patient/family/POA. Questions were solicited and answers provided to the satisfaction of the patient/family/POA.
--- NOTE | 2022-03-09 13:32 | WPDPN ---
Progress Note: A&P Assessment and Plan (1) Abscess of arm, right: Code(s): L02.413 - Cutaneous abscess of right upper limb Status: Acute Plan Progressing. Washout and dressing change today. Time Spent With Patient Time with patient: less than 15 minutes Subjective Date/time seen: 03/09/22 13:32 Interval history: Doing well. getting frustrated. Exam Narrative: Alert and informative. No significant drainage today.. Culture grew MRSA. Covered by [facility]. Objective Data Vital Signs Vital Signs: Vital Signs - 24 hr 03/08/22 15:39 03/08/22 21:37 03/09/22 06:00 Temperature 98.5 F 98.9 F 98.5 F Pulse Rate 82 81 82 Respiratory Rate 16 14 16 Blood Pressure 147/70 H 118/63 150/72 H Pulse Oximetry 93 98 94 Oxygen Delivery 03/09/22 09:00 03/09/22 12:50 Temperature 98.3 F Pulse Rate 79 Respiratory Rate 16 Blood Pressure 145/65 H Pulse Oximetry 100 Oxygen Delivery Room Air Room Air Intake/Output Intake/Output: Intake & Output 03/07/22 03/08/22 03/08/22 03/09/22 00:59 00:59 23:59 23:59 Intake Total 300 Output Total Balance 300 Meds/Results Medications: Active Medications Generic Name Dose Route Start Last Admin Trade Name Freq PRN Reason Stop Dose Admin Acetaminophen 650 mg 03/05/22 19:14 03/07/22 16:58 Acetaminophen 325 Mg Tablet PO 650 mg Q4H PRN Administration Mild Pain (1-3) or Fever Hydrocodone Bitart/Acetaminophen 1 tab 03/05/22 19:14 03/09/22 06:02 Hydrocodone/Acetaminophen (*Crx) 5-325 Mg Tablet PO 1 tab Q4H PRN Administration Moderate Pain (4-6) Atorvastatin Calcium 20 mg 03/06/22 09:00 03/09/22 09:05 Atorvastatin 20 Mg Tablet PO 20 mg DAILY CHARIS Administration Fentanyl Citrate 25 mcg 03/09/22 13:31 Fentanyl Citrate Inj (*Crx) 100 Mcg/2 Ml Vial IV PUSH Q2M PRN Pain Vancomycin HCl 1,250 mg in 250 mls @ 200 mls/hr 03/07/22 17:00 03/09/22 05:35 Vancomycin 1,250 Mg/D5w 250 Ml IVPB 200 mls/hr Q12H CHARIS Administration Lactated Ringer's 1,000 mls @ 30 mls/hr 03/09/22 07:25 03/09/22 13:02 Lr - Lactated Ringers Iv IV CONT 30 mls/hr .Q24H CHARIS Administration Lactated Ringer's 1,000 mls @ 30 mls/hr 03/09/22 13:35 Lr - Lactated Ringers Iv IV CONT .Q24H CHARIS Lactated Ringer's 1,000 mls @ 30 mls/hr 03/09/22 13:35 Lr - Lactated Ringers Iv IV CONT .Q24H CHARIS Morphine Sulfate 2 mg 03/05/22 19:14 Morphine Sulfate (*Crx) 2 Mg/Ml Inj IV PUSH Q4H PRN Pain Rated 7-10 Ondansetron HCl 4 mg 03/05/22 19:14 03/08/22 04:24 Ondansetron Inj 4 Mg/2 Ml Vial IV PUSH 4 mg Q6H PRN Administration Nausea And Vomiting Ondansetron HCl 4 mg 03/09/22 13:31 Ondansetron Inj 4 Mg/2 Ml Vial IV PUSH ONCE PRN Nausea Labs Labs: Laboratory Results - last 24 hr 03/09/22 03/09/22 04:08 04:08 Creatinine 0.70 Estim Creat Clear Calc 71 Estimated GFR > 60 Vancomycin Trough 14.8
[2022-03-09] MEDS: fentaNYL CITRATE INJ (*CRX) 100 MCG/2 ML VIAL 25 MCG IV PUSH ×4 (14:41→15:06)
--- NOTE | 2022-03-09 14:45 | W.PM.PROC2 ---
Procedure Note - Detailed Date of Procedure 03/09/22 Pre-op Diagnosis abscess right arm Post-op Diagnosis Same Procedure Performed Third washout and dressing change under anesthesia right arm abscess cavity 20 x 10 cm Surgeon Gen Botello MD Anesthesia General Indications Cavernous subcutaneous abscess wound with serous drainage Description of Procedure The arm was marked in the holding area. The patient was taken to the operating where she was placed supine on the operating table. She was given general anesthesia with an LMA and the right upper extremity was prepped and draped in usual fashion. No tourniquet was used. The wounds were digitally explored and then aspirated with Rose Marie sucker. Total 3 L of saline were irrigated through the four wound.. Each of these wounds communicates with the others. Abrasive debridement with Ray-Domingo sponges was carried out and all directions. Finally the wound was dressed with 4 strips of alginate Ag Advantage rope. Each of these is 18 in long. None of them were fixed to the patient. Estimated Blood Loss -20.0 Urine Output 250 Drains No Packing Yes Pathology None sent Complications No immediate complications Condition Stable Disposition Same day
--- NOTE | 2022-03-09 15:09 | SUR.PHASEI ---
1509: Simple mask removed.
[2022-03-10 06:00] VITALS: BP 165/72; PULSE 75; RESP 16; TEMP 36.9; O2SAT 98
--- NOTE | 2022-03-10 07:03 | WPDANESPN ---
Anes - Prog Note Post-Op Date/Time: 03/10/22 07:03 Cardiovascular status: normal Respiratory status: normal Airway patency: baseline Mental status: baseline Post-Op hydration status: normal Vital Signs: Last Vital Signs Temp 98.4 F 03/10/22 06:00 Pulse 75 03/10/22 06:00 Resp 16 03/10/22 06:00 BP 165/72 H 03/10/22 06:00 Pulse Ox 98 03/10/22 06:00 O2 Del Method Room Air 03/09/22 15:25 O2 Flow Rate 6 03/09/22 14:55 Pain Score (VAS): 0 I/O: Intake & Output 03/09/22 03/09/22 03/10/22 15:59 23:59 07:59 Intake Total 600 610 250 Output Total 250 350 Balance 350 610 -100 Laboratory Tests 03/06/22 05:25 03/09/22 04:08 Post-procedural complaints: none Patient Feedback: Patient satisfied with anesthetic care.
[2022-03-10] MEDS: ATORVASTATIN 20 MG TABLET PO (08:49)
[2022-03-10] MEDS: ACETAMINOPHEN 325 MG TABLET 650 MG PO (12:39)
[2022-03-10 14:00] VITALS: BP 123/52; PULSE 77; RESP 18; TEMP 36.7; O2SAT 100
--- NOTE | 2022-03-10 17:24 | WPDPN ---
Progress Note: A&P Assessment and Plan (1) Abscess of arm, right: Code(s): L02.413 - Cutaneous abscess of right upper limb Status: Acute Assessment and Plan: Appears to be resolving. Expect to remove all dressing tomorrow and attempt bedside saline irrigation. (2) Surgical site infection: Code(s): T81.49XA - Infection following a procedure, other surgical site, initial encounter Status: Acute Assessment and Plan: Infection appears to be controlled. Will plan discharge on oral antibiotics. Subjective Date/time seen: 03/10/22 17:24 Interval history: Continues to engage verbally in good humor. Friend present tonight. Exam Narrative: Dressing changed by me. Had been reinforced once today. No cellulitis or induration. Generally not tender. Moves extremity well. Asking for hydrocodone apporx. Q 6 hr. No pus. Dressing is saturated with old blood and serous fluid. Approx 1/3 of Alginate AG dressing pulled out without pain. No matty pus. Dressing ends remain exposed at each of the four wounds. Objective Data Vital Signs Vital Signs: Vital Signs - 24 hr 03/09/22 17:44 03/09/22 21:39 03/10/22 06:00 Temperature 98.8 F 98.1 F 98.4 F Pulse Rate 89 53 L 75 Respiratory Rate 16 16 16 Blood Pressure 133/56 L 151/47 H 165/72 H Pulse Oximetry 94 100 98 Oxygen Delivery 03/10/22 08:30 03/10/22 14:00 Temperature 98.1 F Pulse Rate 77 Respiratory Rate 18 Blood Pressure 123/52 L Pulse Oximetry 100 Oxygen Delivery Room Air Intake/Output Intake/Output: Intake & Output 03/08/22 03/08/22 03/09/22 03/10/22 00:59 23:59 23:59 23:59 Intake Total 1660 730 Output Total 250 350 Balance 1410 380 Meds/Results Medications: Active Medications Generic Name Dose Route Start Last Admin Trade Name Freq PRN Reason Stop Dose Admin Acetaminophen 650 mg 03/05/22 19:14 03/10/22 12:39 Acetaminophen 325 Mg Tablet PO 650 mg Q4H PRN Administration Mild Pain (1-3) or Fever Hydrocodone Bitart/Acetaminophen 1 tab 03/05/22 19:14 03/09/22 22:12 Hydrocodone/Acetaminophen (*Crx) 5-325 Mg Tablet PO 1 tab Q4H PRN Administration Moderate Pain (4-6) Atorvastatin Calcium 20 mg 03/06/22 09:00 03/10/22 08:49 Atorvastatin 20 Mg Tablet PO 20 mg DAILY CHARIS Administration Vancomycin HCl 1,250 mg in 250 mls @ 200 mls/hr 03/07/22 17:00 03/10/22 16:23 Vancomycin 1,250 Mg/D5w 250 Ml IVPB 200 mls/hr Q12H CHARIS Administration Morphine Sulfate 2 mg 03/05/22 19:14 Morphine Sulfate (*Crx) 2 Mg/Ml Inj IV PUSH Q4H PRN Pain Rated 7-10 Ondansetron HCl 4 mg 03/05/22 19:14 03/08/22 04:24 Ondansetron Inj 4 Mg/2 Ml Vial IV PUSH 4 mg Q6H PRN Administration Nausea And Vomiting
[2022-03-10] MEDS: HYDROcodone/acetaminophen (*CRX) 5-325 MG TABLET 1 TAB PO (18:13)
[2022-03-10 20:00] VITALS: PULSE 77; RESP 18; O2SAT 100
[2022-03-10 22:00] VITALS: BP 141/69; PULSE 76; RESP 16; TEMP 36.9; O2SAT 98
[2022-03-11 06:00] VITALS: BP 141/67; PULSE 82; RESP 18; TEMP 36.9; O2SAT 97
[2022-03-11 06:29] LABS: Hemoglobin 9.2 g/dL (12.0-15.0); Mean Corpuscular HGB Conc 32.9 g/dl (32-36); Mean Corpuscular Hemoglobin 30.7 pg (26-34); Mean Corpuscular Volume 93.3 fl (80-100); Mean Platelet Volume 9.1 fl (7.4-10.4); Platelet Count Result 315 k/mm3 (150-375); Red Cell Distribution Width 12.5 % (11.5-14.5); White Blood Count 6.7 K/mm3 (4.5-10.0)
[2022-03-11 06:47] LABS: Vancomycin Trough 17.6 ug/mL (10.0-20.0)
[2022-03-11] MEDS: ATORVASTATIN 20 MG TABLET PO (08:07)
[2022-03-11] MEDS: HYDROcodone/acetaminophen (*CRX) 5-325 MG TABLET 1 TAB PO (08:09)
[2022-03-11] MEDS: MORPHINE SULFATE (*CRX) 2 MG/ML INJ IV PUSH (11:39)
--- NOTE | 2022-03-11 12:53 | WPDPN ---
Progress Note: A&P Assessment and Plan (1) Abscess of arm, right: Code(s): L02.413 - Cutaneous abscess of right upper limb Status: Acute Assessment and Plan: Pt ready to be discharged. Discussed with Elsi, Senior Account Clerk. Dressing daily until healed, with 1 L NS irrigation tomorrow and Wednesday by HHN only. Script for Bactrim DS # 20. Hydrocodone 5/325 Q 6 prn pain #12. F/U with Dr Botello in office one week. Plan Discharge home. Time Spent With Patient Time with patient: 15 - 25 minutes Subjective Date/time seen: 03/11/22 12:53 Interval history: Anxious to be discharged. Exam Narrative: Dressing changed. No erythema. No induration. Wound margins pink. No drainage. All alginate AG Advantage tape removed without difficulty. Wound cavity digitally explored for additional loose material, none found. Wound cavity irrigated with 1000 ml of normal saline. All effluent was clear without particulate material. Her standard dressing reapplied. Objective Data Vital Signs Vital Signs: Vital Signs - 24 hr 03/10/22 14:00 03/10/22 20:00 03/10/22 22:00 Temperature 98.1 F 98.4 F Pulse Rate 77 77 76 Respiratory Rate 18 18 16 Blood Pressure 123/52 L 141/69 H Pulse Oximetry 100 100 98 Oxygen Delivery Room Air 03/11/22 06:00 03/11/22 08:00 Temperature 98.5 F Pulse Rate 82 Respiratory Rate 18 Blood Pressure 141/67 H Pulse Oximetry 97 Oxygen Delivery Room Air Intake/Output Intake/Output: Intake & Output 03/08/22 03/09/22 03/10/22 03/11/22 23:59 23:59 23:59 23:59 Intake Total 1660 1770 240 Output Total 250 350 Balance 1410 1420 240 Meds/Results Medications: Active Medications Generic Name Dose Route Start Last Admin Trade Name Freq PRN Reason Stop Dose Admin Acetaminophen 650 mg 03/05/22 19:14 03/10/22 12:39 Acetaminophen 325 Mg Tablet PO 650 mg Q4H PRN Administration Mild Pain (1-3) or Fever Hydrocodone Bitart/Acetaminophen 1 tab 03/05/22 19:14 03/11/22 08:09 Hydrocodone/Acetaminophen (*Crx) 5-325 Mg Tablet PO 1 tab Q4H PRN Administration Moderate Pain (4-6) Atorvastatin Calcium 20 mg 03/06/22 09:00 03/11/22 08:07 Atorvastatin 20 Mg Tablet PO 20 mg DAILY CHARIS Administration Vancomycin HCl 1,250 mg in 250 mls @ 200 mls/hr 03/11/22 11:00 03/11/22 11:20 Vancomycin 1,250 Mg/D5w 250 Ml IVPB 200 mls/hr Q18H CHARIS Administration Morphine Sulfate 2 mg 03/05/22 19:14 03/11/22 11:39 Morphine Sulfate (*Crx) 2 Mg/Ml Inj IV PUSH 2 mg Q4H PRN Administration Pain Rated 7-10 Ondansetron HCl 4 mg 03/05/22 19:14 03/08/22 04:24 Ondansetron Inj 4 Mg/2 Ml Vial IV PUSH 4 mg Q6H PRN Administration Nausea And Vomiting Labs Labs: Laboratory Results - last 24 hr 03/11/22 03/11/22 05:07 05:07 WBC 6.7 RBC 3.00 L Hgb 9.2 L Hct 28.0 L MCV 93.3 MCH 30.7 MCHC 32.9 RDW 12.5 Plt Count 315 MPV 9.1 Vancomycin Trough 17.6
--- NOTE | 2022-03-11 13:26 | PM.DS ---
DS: Admitting Diagnosis Discharge Date 03/11/2022 Admitting Diagnosis Surgical site cellulitis/abscess right arm DS: Discharge Diagnosis Discharge Diagnosis (1) Abscess of arm, right: Onset Date: ~01/2022 Code(s): L02.413 - Cutaneous abscess of right upper limb Status: Acute Assessment and Plan: Healing as expected. (2) Surgical site infection: Code(s): T81.49XA - Infection following a procedure, other surgical site, initial encounter Status: Acute Assessment and Plan: Resolved Plan discharge on dressing care with HHS and Bactrim. 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 Hospital Course: Had been treated with Bactrim 2 day prior to admission. Culture sent from surgeon's office to Cardio control. Grew MRSA and is sensitive to Bactrim. Pt taken to surgery acutely after being diagnosed in the office. Was started on Vancomycin and eventually Rocephin on the advice of the Infectious Disease Pharmacist while awaiting culture results. Subsequently underwent 2 additional washouts under general anesthesia. No signs of active infection at the time of discharge. Time spent discussing smoking cessation with patient: 3 to 10 minutes Status at Discharge Functional status at discharge: independent ambulation Overall status at discharge: patient is progressing back to baseline Time Spent with Patient Time attestation: Total time spent providing and/or coordinating discharge services: Time spent: Less than 30 minutes Specific discharge activities: As tolerated. Wound dressing daily assisted by HHN . May shower, avoid direct spray into wound one week. Exam Const: General: cooperative, comfortable and Physically active Nutritional Appearance: average body habitus Orientation/consciousness: oriented to person, oriented to place and oriented to time Limitations: no limitations HENMT: Head: normal to inspection Ears: hearing grossly normal bilaterally Neuro: General: moves all extremities and no focal motor deficits Extrem: Other: 4 surgical wounds (1.5-3 cm in length) in excellent condition. No induration or purulent drainage at this point. Right arm dressed with gauze. Psych: Appearance: grossly normal DS: Data Data Completed and Pending Completed studies during hospitalization: MRSA wound infection by outside culture. Sensitive to Vancomycin and Bactrim and others. Labs on day of discharge: Labs from last 24 hours 03/11/22 03/11/22 05:07 05:07 WBC 6.7 RBC 3.00 L Hgb 9.2 L Hct 28.0 L MCV 93.3 MCH 30.7 MCHC 32.9 RDW 12.5 Plt Count 315 MPV 9.1 Vancomycin Trough 17.6 Procedures/Treatments: I&D with washout and dressing change x3. Discharge Plan Discharge Attending physician on discharge: GarrettDale Consulting providers: Gen Botello Discharging Clinician: Gen Botello Patient Disposition: Home Health Service Activity: as tolerated and other - see discharge instructions Diet: as tolerated Wound Care Instructions: change dressing daily and other - see discharge instructions Discharge Instructions: Per Care Coordination Patient has been accepted by [facility] services for RN dressing change and OT [phone] RN please fax completed discharge instructions to [phone] Patient Instructions: Antibiotic Form Patient Language: Swiss Follow-up/Referrals: Gen Botello MD [Physician] - Discharge Medications: New hydrocodone-acetaminophen 5-325 mg tablet 1 tablet PO Q6H MDD 4 PRN (Reason: pain) Qty: 12 0RF Continued atorvastatin 20 mg tablet 20 mg PO DAILY sulfamethoxazole-trimethoprim 800-160 mg tablet 1 tablet PO BID Date of admission: 03/05/22 17:53 Primary Care Provider: Garrett,Dale Leary Admitting Provider: Gen Botello Attending physician on admission: Jamal
[2022-03-11 14:00] VITALS: BP 133/57; PULSE 75; RESP 18; TEMP 36.6; O2SAT 98
== END 2022-03-11 15:30 | disposition home health service (06) | DRG 863 ==
LOC: ANH3MED 20:01
PROVIDERS: Admitting Provider Plastic Surgery; PCP Internal Medicine; Visit Provider Plastic Surgery
PROC: 0J9D0ZZ Drainage of Right Upper Arm Subcutaneous Tissue and Fascia, Open Approach (ICD-10-PCS; principal; 2022-03-05 16:00)
PROC: 0J9D3ZZ Drainage of Right Upper Arm Subcutaneous Tissue and Fascia, Percutaneous Approach (ICD-10-PCS; principal; 2022-03-09 13:30)
DX: T81.49XA Infection following a procedure, other surgical site, initial encounter (principal); L02.413 Cutaneous abscess of right upper limb; B95.62 Methicillin resistant Staphylococcus aureus infection as the cause of diseases classified elsewhere; C44.612 Basal cell carcinoma of skin of right upper limb, including shoulder; Z28.21 Immunization not carried out because of patient refusal
CPT/HCPCS: 36415; 80202; 82565; 85025; 85027; A9270; J0330; J0690; J0696; J1100; J1170; J2250; J2270; J2405; J2704; J3010; J3370; J7120

== ENCOUNTER 2025-03-30 10:28 | Outpatient (CLI) | payer MEDICARE, SELFPAY ==
--- NOTE | ~2025-03-30 | MM_ITS ---
EXAMINATION: MM screening carley BI w alejandrina HISTORY: Screening. TECHNIQUE: Craniocaudal and mediolateral oblique 3-D tomosynthesis images were obtained and synthetic 2-D images were generated. CAD analysis was submitted and interpreted. COMPARISON: None available. BREAST PARENCHYMAL COMPOSITION: Not Dense: There are scattered areas of fibroglandular tissue. FINDINGS: No suspicious masses are seen. There are no suspicious calcifications. No unexplained architectural distortion is seen. There are no skin or nipple abnormalities identified. There is no adenopathy seen on the images submitted. IMPRESSION: No mammographic evidence to suggest malignancy is seen. The patient may return to screening mammography as per ACR guidelines. BI-RADS: 1 - Negative. Reviewed, dictated and finalized at location A. CAL AIDE
--- NOTE | ~2025-03-30 | DEXA_ITS ---
Bone Density Report Name: VERNA BELLE Age: 69 Sex: Female Ethnicity: White Date of : 1955 Indication: postmenopausal; screening for osteoporosis; prior fracture; cancer; Referring Provider: MICHAELLE, ISI Leary Study: Bone densitometry was performed. Exam Date: March 30, 2025 Accession number: [id number] Bone Density: Region BMD T-score Z-score Classification AP Spine(L1-L4) 0.889 -1.4 0.7 Osteopenia Femoral Neck (Left) 0.569 -2.5 -0.7 Osteoporosis Total Hip (Left) 0.855 -0.7 0.8 Normal Femoral Neck (Right) 0.620 -2.1 -0.3 Osteopenia Total Hip (Right) 0.906 -0.3 1.2 Normal Total Hip Mean 0.881 -0.5 1.0 Normal World Health Organization criteria for BMD impression classify patients as: Normal (T-score at or above -1.0), Osteopenia (T-score between -1.0 and -2.5), or Osteoporosis (T-score at or below -2.5). 10-year Fracture Risk: FRAX not reported because: Some T-score for Spine Total or Hip Total or Femoral Neck at or below -2.5 Clinical Information Provided by Patient: Has had a low trauma fracture Has the following medical conditions: Cancer Patient maximum height was 64 No regular weight bearing exercise Drinks caffeinated beverages Onset of menses at age 14 Number of children 1 Impression: The patient has established osteoporosis, based on the Left Femoral Neck T-score and the existence of a prior fracture. The patient has risk factors, including: previous fracture. Discussion: HIGH RISK OF FRACTURE. BONE DENSITY IS UNDESIRABLY LOW AT ONE OR MORE SKELETAL SITES, CONSISTENT WITH POSTMENOPAUSAL OSTEOPOROSIS. This patient's lowest T-score, in a patient who has previously fractured, meets the World Health Organization's (WHO) criteria for severe osteoporosis. In untreated patients, the risk of osteoporotic fracture increases approximately two-fold for each 1.0 SD decrease in T-score. Low bone density is not the only risk factor for fracture; also consider factors such as patient's age, frailty or poor health, risk of falling, risk of injury, previous osteoporotic fracture, family history of osteoporosis, cigarette smoking, low body weight, etc. Not everyone with low bone mineral density has osteoporosis; osteomalacia and other metabolic bone disorders should also be considered. Patients who have osteoporosis should be evaluated for specific diseases and conditions (secondary causes) that may cause or contribute to bone loss. The [place] [employer] Endocrinologists (AACE) and National Osteoporosis Foundation (NOF) recommend pharmacologic intervention for all postmenopausal women whose T-score is in this range. The patient should follow a healthful lifestyle (good nutrition with adequate calcium and vitamin D, and appropriate weight-bearing exercise). Follow-Up: Consider a repeat BMD and Vertebral Fracture Assessment (VFA) exam in 2 years or sooner if medically necessary, to reassess this patient's status. Reported by: JULIET on 03/30/2025 11:16:00 AM. Reviewed, dictated and finalized at location A.
--- OUTSIDE RECORDS SUMMARY | 2025-03-30 10:32 | XMS_ITS | Clinical Summary ---
Author Organization [facility] Address [address] [place] [address] Care Team Providers Care Seat Coverer Name Role Phone Pao Syed MD Primary Care Provider [phone] Source Comments [facility],non-owned Affiliates and Associated Physician Practices is amultiple site organization consisting of ambulatory clinics and hospital sitesin [place], [place], [place] and [place]. This disclosure is being madepursuant to the Care Everywhere program and may not contain all information available regarding this patient. Last updated 18.[facility] Allergies No known active allergies Medications * Be aware that medications may not be up to date on this document. Alwaysverify current medications with the patient. aspirin (ASPIRIN) 81 MG tablet Take 1 tablet by mouth once daily 30 tablet 03/09/2018 Active atorvastatin (LIPITOR) 10 MG tablet TAKE 1 TABLET DAILY 90 tablet 07/21/2018 Active Active Problems Problem Noted Date Diagnosed Date Mixed hyperlipidemia 09/29/2016 Family history of malignant neoplasm of breast 0 10/30/2010 Family history of ischemic heart disease 011 Family history of diabetes mellitus 10/30/2010 Depression Immunizations Immunization Administration Dates Next Due TDAP (7yrs+) 10/30/2010 Family History Medical History Relation Name Comments CAD (Coronary Artery Disease) Father Diabetes Father Cancer Mother breast Cancer - Breast Mother Diabetes Mother Hypertension Mother Relation Name Status Comments Father Mother Social History Tobacco Use Types Packs/Day Years Used Date Smoking Tobacco: Never Alcohol Use Standard Drinks/Week Comments No 0 (1 standard drink = 0.6 oz pur e alcohol) Comments No Sex and Gender Information Value Date Recorded Sex Assigned at Not on file Legal Sex Female 4:16 AM [employer]ILI [employer] Gender Identity Not on file Sexual Orientation Not on file 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 Not on file Not on file Not on file Last Filed Vital Signs Vital Sign Reading Time Taken Comments Blood Pressure 154/94 03/09/2018 9:11 AM [employer]ILI [employer]ER Pulse 74 03/09/2018 9:11 AM [employer] Temperature 37.1 C (98.8 F) 09/28/2015 10:24 AM CDT Respiratory Rate 18 09/28/2015 10:2 4 AM CDT Oxygen Saturation 98% 03/09/2018 9:11 AM [employer]ER Inhaled Oxygen Concentration - - Weight 75.3 kg (165 lb 14.4 oz) 03/09/2018 9:11 AM [employer]IL[employer] Height 157.5 cm (5' 2) 03/09/2018 9:11 AM [employer] Body Mass Index 30.34 03/09/2018 9:11 AM [employer]ILI MAKER Plan of Treatment Health Maintenance Due Date Last Done Comments BONE DENSITY TESTING 1955 COLOGUARD (AGES 45-75) - COLON CA SCREENING 1955 COLON MONITORING 1955 COLONOSCOPY - COLON CA SCREENING 1955 CT COLONOGRAPHY - COLON CA SCREENING 1955 Colorectal Cancer Screening 1955 FIT - COLON CA SCREENING 1955 FLEX SIG - COLON CA SCREENING 1955 PNEUMOCOCCAL VACCINE 50+ (1 of 1 - PCV) 2005 ZOSTER VACCINE (1 of 2) 2005 DTAP/TDAP/TD VACCINES (2 - Td or Tdap) 10/30/2020 10/30/2010 SCREENING FOR DIABETES 03/08/2021 8, 09/28/2015, 09/27/2015, Additional history exists MAMMOGRAM 05/30/2021 05/30/2019, 03/04, 09/18/2015 DEPRESSION SCREENING 05/03/2024 COVID-19 VACCINE (1 - 2024- season) 2025 INFLUENZA VACCINE (#1) 2025 Respiratory Syncytial Virus (RSV) Vaccine Pt: or over 60 yrs (1 - 1-dose 75+ series) 2030 HEPATITIS C SCREENING Completed 12/03/2016, 016 HEPATITIS B VACCINE Aged Out No longe r eligible based on patient's age to complete this topic HIB VACCINE Aged Out No longer eligi ble based on patient's age to complete this topic HPV VACCINE Aged Out No longer eligi ble based on patient's age to complete this topic MENINGOCOCCAL (Group B) VACCINE SHARED DECISION-MAKING Aged Out No longer eligible based on patient's age to complete this topic MENINGOCOCCAL GROUPS A/C/Y/W VACCINE Aged Out No longer eligible based on patient's age to complete this topic Procedures Procedure Name Priority Date/Time Associated Diagnosis Comments MAMMO BILAT SCREENING Routine 05/30/2019 10:22 AM [employer]IL[employer] Visit for screening mammogram COMPREHENSIVE METABOLIC PANEL Routine 03/08/2018 10:34 AM CHIL[employer] MAKER Annual physical exam Breast screening Screen for colon cancer Mixed hyperlipidemia HEPATITIS C ANTIBODY Routine 12/03/2016 12:53 PM CDT History of hepatitis from Last 3 Months or Most Recently Relevant to Health Maintenance Results * MAMM SCREENING DIGITAL IMAGE BILAT G0202 (05/30/2019 10:22 AM CHILI MAKER) Anatomical Region Laterality Modality Breast Bilateral Mammography 05/31/2019 9:31 AM CHILI MAKER Impressions 05/31/2019 9:32 AM CHILI MAKER No mammographic evidence of malignancy. BI-RADS Category 1: Negative Recommendation: Resume routine yearly mammography schedule for women over age 40 or return sooner if clinically indicated. Your patient completed a computer based breast cancer risk assessment survey. Based on the information provided by your patient, the survey results indicate that she is NOT AT INCREASED RISK to develop a breast cancer. Additional quantitative risk model data + patient history details have been scanned as a document/letter in the [employer] EMR (media tab). If there are questions regarding this information or our Cancer Genetics Risk Assessment Program, please do not hesitate to contact [phone]. Reading Radiologist: aCrlos Osorio MD on 05/31/2019 at 9:32 AM Narrative 05/31/2019 9:32 AM CHIL[employer]ER Bilateral mammography. Most recent comparison: 2018 History: Screening mammogram. Technique: Bilateral Breasts. Mammography views included: CC and MLO. Images interpreted with CAD. Following current [facility] protocol, 3D mammographic tomosynthesis images were obtained and reviewed on a dedicated viewing station. FINDINGS: Breast composition: Scattered areas of fibroglandular density. No suspicious microcalcifications, masses or areas of architectural distortion. Pao Syed MD MAMMO ORDERABLES Final Result * (ABNORMAL) COMPREHENSIVE METABOLIC PANEL (03/08/2018 10:34 AM CHILI MAKER) Glucose 105 74 - 106 mg/dL [facility] ACCOUNT BILL BUN 19 7 - 21 mg/dL [facility] ACCOUNT BILL Creatinine 0.91 0.50 - 1.30 mg/dL [facility] ACCOUNT BILL eGFR by MDRD >60 >60 mL/min/1.7 3m2 [facility] ACCOUNT BILL eGFR by MDRD >60 >60 mL/min/1.7 3m2 [facility] ACCOUNT BILL Sodium 140 136 - 145 mmol/L [facility] ACCOUNT BILL Potassium 4.1 3.5 - 5.1 mmol/L [facility] ACCOUNT BILL Chloride 105 98 - 107 mmol/L [facility] ACCOUNT BILL CO2 28 22 - 31 mmol/L [facility] ACCOUNT BILL Calcium 8.4(L) 8.5 - 10.1 mg/dL [facility] ACCOUNT BILL Protein Total 7.5 6.4 - 8.2 gm/dL [facility] ACCOUNT BILL Albumin 4.0 3.4 - 5.0 gm/dL [facility] ACCOUNT BILL Bilirubin Total 0.7 0.2 - 1.0 mg/dL [facility] ACCOUNT BILL Alkaline Phosphatase 74 38 - 126 U/L [facility] ACCOUNT BILL AST 27 5 - 40 U/L [facility] ACCOUNT BILL ALT 44 13 - 61 U/L [facility] ACCOUNT BILL Comment:FASTING Blood BLOOD SPECIMEN / Unknown 03/08/2018 10:34 AM CHILI MAKER 03/08/2018 Narrative Resulting Agency Comment [facility] [address] [place] [phone] us Pao Syed MD LAB - CHEMISTRY ORDERABLES Savana l Result [facility] ACCOUNT BILL [address] [place] [address] * HEPATITIS C ANTIBODY (12/03/2016 12:53 PM CDT) Hepatitis C Antibody Non Reactive Non Reactive [facility] ACCOUNT BILL Comment: Non Reactive - Antibodies to Hepatitis C virus (HCV) were no t detected, result does not exclude early acute HCV infection. Blood BLOOD SPECIMEN / Unknown 12/03/2016 12:53 PM CDT 12/03/2016 Narrative Resulting Agency Comment [facility] [address] [place] [phone] us Denice Goyal MD LAB - CHEMISTRY ORDERABLES Fi nal Result [facility] ACCOUNT BILL [address] [place] [address] from Last 3 Months or Most Recently Relevant to Health Maintenance Insurance ANTH Advance Directives * Full Code (Latest Code Status on File) Date Activated Date Inactivated Comments 09/27/2015 3:21 PM 09/28/2015 3:53 PM Care Teams Seat Coverer Relationship Specialty Start Date End Date Pao Syed MD PCP - General Family Medicine 09/12/15
--- OUTSIDE RECORDS SUMMARY | 2025-03-30 10:33 | XMS_ITS | Data Portability ---
Author Organization [place] [facility] [employer], Main Office Address [address] [place] [address] Care Team Providers Care Clinical Engineer Name Role Phone ISI TUCKER Primary Care Provider [phone] ISI TUCKER Referring Provider Assessment Encounter Date Assessment Date Assessment LastModified by Organization Details LastModified Time 2023 2023 Assessment: Hypertension Mild OSAHS, AHI = 12 Plan: The following were reviewed and explained to the patient: [facility] home sleep study 01/08/23 AHI = 12 [facility] titration sleep study 06/05/23 Respironics small DreamWear nasal mask @ 4-6 cmH2O Educated the patient on problems and solutions associated with positive airway pressure (PAP) use. Difficulty tolerating pressure, mask leaks, intolerance of interface, nasal congestion, claustrophobic response, dry mouth, and unintentional mask removal during sleep were covered. ResMed Air Sense 11 auto set unit with heated humidifier, supplies, Respironics small DreamWear nasal mask @ 4-6 cmH2O ordered. Further titration will be based on clinical response. Provided the patient with a list of local home care stores where positive airway pressure (PAP) units, accouterments, and services are available. Home care store selection is based on patient's insurance carrier. Patient will setup an appointment with [facility] for supplies and pressure adjustments. A major predictor of success with use of PAP is follow-up with both the respiratory supplier and the treating physician. The respiratory supplier optimally will follow-up within two weeks after starting use while the treating physician optimally will follow-up within 90 days after starting therapy to assess adherence and effectiveness of treatment. The download results can show the treating physician information about adherence to treatment, residual AHI while on treatment and presence of large mask leakage. This information is especially helpful if the patient has residual sleepiness despite treatment. General information on sleep disordered breathing, evaluation of sleep disordered breathing, treatment with PAP therapy, and living with PAP therapy were covered. We discussed with the patient the impact of weight on: Sleep disordered breathing Hypertension Hyperlipidemia Hip osteopenia We discussed with the patient the benefit of PAP therapy on: Sleep disordered breathing Depression Hypertension Educated the patient on sleep hygiene measures. Relaxing rituals to rest easy, understanding foods with positive and negative impact on sleep, creating a peaceful sleep environment, timing of exercise, using herbal sleep aids, and practicing sleep-friendly meditation were covered. To determine how much sleep is needed, the patient will assess where she falls on the spectrum, examine what lifestyle factors such as work schedules and stress are affecting the quality and quantity of sleep. In general, adults need 7-9 hours of sleep. Educated the patient regarding foods that promote sleep. These include but are not limited to cherries, bananas, toast, oatmeal, and warm milk. Educated the patient regarding foods and drinks to avoid before bedtime. These include but are not limited to aged cheese, chocolate, spicy foods, tomato-based sauces, soy, ginseng tea and processed meat. Advocated influenza vaccination annually and pneumonia vaccination URSULA. Advocated weight loss through diet and exercise. Patient's ideal body weight according to height and gender is up to 135 lbs. Encouraged patient to adjust caloric intake to maintain/achieve ideal body weight, emphasizing on fruits, vegetables, whole grains, and fat-free or low-fat products. These include lean meats, poultry, fish, beans, eggs, and nuts and foods that are low in saturated fats, trans-fats, cholesterol, salt (sodium), and glycemic index. Stressed the importance of regular exercise up to the patient's capacity limits. In this case, we recommend 20 min daily walking, 2 days a week of resistance training. Patient to monitor BP daily and bring records to PCP for further management. Follow-up: 3 months, September 2023 Not available 2023 10:45:28 09/07/2023 09/07/2023 Assessment: Mild OSAHS, AHI = 12 Plan: The following were reviewed and explained to the patient: [facility] home sleep study 01/08/23 AHI = 12 [facility] titration sleep study 06/05/23 Respironics small DreamWear nasal mask @ 4-6 cmH2O PAP compliance downloaded and interpreted x 20 minutes. Data reviewed and explained to the patient. Average apnea/hypopnea index (AHI) is 1.7. Patient used PAP > 4 hours 100% of the time. PAP is set at 4-6 cmH2O. PAP will be reset at 5-7 cmH2O. Keep APR +1. Keep humidifier at 4. Keep tube temperature at automatic mode. Oxygen supplementation: none Patient is benefiting from PAP therapy. Encouraged patient to maintain PAP use more than 70% of the time. Statement of PAP use and benefits will be sent to the home care store. Educated the patient on problems and solutions associated with positive airway pressure (PAP) use. Difficulty tolerating pressure, mask leaks, intolerance of interface, nasal congestion, claustrophobic response, dry mouth, and unintentional mask removal during sleep were covered. Provided the patient with a list of local home care stores where positive airway pressure (PAP) units, accoutrement, and services are available. Home care store selection is based on patient's insurance carrier. Patient will setup an appointment with [facility] for supplies and pressure adjustments. A major predictor of success with use of PAP is follow-up with both the respiratory supplier and the treating physician. The respiratory supplier optimally will follow-up within two weeks after starting use while the treating physician optimally will follow-up within 90 days after starting therapy to assess adherence and effectiveness of treatment. The download results can show the treating physician information about adherence to treatment, residual AHI while on treatment and presence of large mask leakage. This information is especially helpful if the patient has residual sleepiness despite treatment. General information on sleep disordered breathing, evaluation of sleep disordered breathing, treatment with PAP therapy, and living with PAP therapy were covered. We discussed with the patient the impact of weight on: Sleep disordered breathing Hypertension Hyperlipidemia Hip osteopenia We discussed with the patient the benefit of PAP therapy on: Sleep disordered breathing Depression Hypertension Educated the patient on sleep hygiene measures. Relaxing rituals to rest easy, understanding foods with positive and negative impact on sleep, creating a peaceful sleep environment, timing of exercise, using herbal sleep aids, and practicing sleep-friendly meditation were covered. To determine how much sleep is needed, the patient will assess where she falls on the spectrum, examine what lifestyle factors such as work schedules and stress are affecting the quality and quantity of sleep. In general, adults need 7-9 hours of sleep. Educated the patient regarding foods that promote sleep. These include but are not limited to cherries, bananas, toast, oatmeal, and warm milk. Educated the patient regarding foods and drinks to avoid before bedtime. These include but are not limited to aged cheese, chocolate, spicy foods, tomato-based sauces, soy, ginseng tea and processed meat. Advocated influenza vaccination annually and pneumonia vaccination URSULA. Advocated weight loss through diet and exercise. Patient's ideal body weight according to height and gender is up to 135 lbs. Encouraged patient to adjust caloric intake to maintain/achieve ideal body weight, emphasizing on fruits, vegetables, whole grains, and fat-free or low-fat products. These include lean meats, poultry, fish, beans, eggs, and nuts and foods that are low in saturated fats, trans-fats, cholesterol, salt (sodium), and glycemic index. Stressed the importance of regular exercise up to the patient's capacity limits. In this case, we recommend 20 min daily walking, 2 days a week of resistance training. Patient to monitor BP daily and bring records to PCP for further management. Follow-up: 1 year, August 2024 [email or web address] Not available 09/07/2023 11:22:25 10/11/2024 10/11/2024 Assessment: Mild OSAHS, AHI = 12 Plan: The following were reviewed and explained to the patient: [facility] home sleep study 01/08/23 AHI = 12 [facility] titration sleep study 06/05/23 Respironics small DreamWear nasal mask @ 4-6 cmH2O PAP compliance downloaded and interpreted x 20 minutes. Data reviewed and explained to the patient. Average apnea/hypopnea index (AHI) is 1.9. Patient used PAP > 4 hours 50% of the time. PAP is set at 5-7 cmH2O. PAP will be reset at 6-7 cmH2O. Keep ramp off. Keep EPR off. Keep humidifier level at automatic mode. Keep tube temperature at automatic mode. Oxygen supplementation: none Patient is benefiting from PAP therapy. Encouraged patient to maintain PAP use more than 70% of the time. Statement of PAP use and benefits will be sent to the home care store. Educated the patient on problems and solutions associated with positive airway pressure (PAP) use. Difficulty tolerating pressure, mask leaks, intolerance of interface, nasal congestion, claustrophobic response, dry mouth, and unintentional mask removal during sleep were covered. Provided the patient with a list of local home care stores where positive airway pressure (PAP) units, accoutrement, and services are available. Home care store selection is based on patient's insurance carrier. Patient will setup an appointment with [facility] for supplies and pressure adjustments. A major predictor of success with use of PAP is follow-up with both the respiratory supplier and the treating physician. The download results can show the treating physician information about adherence to treatment, residual AHI while on treatment and presence of large mask leakage. This information is especially helpful if the patient has residual sleepiness despite treatment. General information on sleep disordered breathing, evaluation of sleep disordered breathing, treatment with PAP therapy, and living with PAP therapy were covered. We discussed with the patient the impact of weight on: Sleep disordered breathing Hypertension Hyperlipidemia Hip osteopenia We discussed with the patient the benefit of PAP therapy on: Sleep disordered breathing Depression Hypertension Educated the patient on sleep hygiene measures. Relaxing rituals to rest easy, understanding foods with positive and negative impact on sleep, creating a peaceful sleep environment, timing of exercise, using herbal sleep aids, and practicing sleep-friendly meditation were covered. To determine how much sleep is needed, the patient will assess where she falls on the spectrum, examine what lifestyle factors such as work schedules and stress are affecting the quality and quantity of sleep. In general, adults need 7-9 hours of sleep. Educated the patient regarding foods that promote sleep. These include but are not limited to cherries, bananas, toast, oatmeal, and warm milk. Educated the patient regarding foods and drinks to avoid before bedtime. These include but are not limited to aged cheese, chocolate, spicy foods, tomato-based sauces, soy, ginseng tea and processed meat. Advocated influenza vaccination annually and pneumonia vaccination URSULA. Advocated weight loss through diet and exercise. Patient's ideal body weight according to height and gender is up to 135 lbs. Encouraged patient to adjust caloric intake to maintain/achieve ideal body weight, emphasizing on fruits, vegetables, whole grains, and fat-free or low-fat products. These include lean meats, poultry, fish, beans, eggs, and nuts and foods that are low in saturated fats, trans-fats, cholesterol, salt (sodium), and glycemic index. Stressed the importance of regular exercise up to the patient's capacity limits. In this case, we recommend 20 min daily walking, 2 days a week of resistance training. Patient to monitor BP daily and bring records to PCP for further management. Follow-up: 1 year, October 2025 Not available 10/11/2024 12:25:13 Plan of Treatment Reminders Order Date Submit Date Provider Last Modified By Organization Details Last Modified Time Details Appointments Any 15 2025 11:00A Jamal Bo MD Not available Not available Not available Lab vitamin D, 25-hydrox y, total, serum 2023 024 [email or web address] [facility], [address] [place], [address], 04/07/2024 15:47:30 lipid panel, serum 2023 024 [email or web address] [facility], [address] [place], [address], 04/07/2024 15:47:29 CMP, serum or plasma 2023 024 [email or web address] [facility], [address] [place], [address], 04/07/2024 15:47:30 CBC w/ auto diff 2023 024 [email or web address] [facility], [address] [place], [address], 04/07/2024 15:47:30 TSH, serum or plasma 2023 024 [email or web address] [facility], [address] [place], [address], 04/07/2024 15:47:30 T4, free, serum 2023 024 [facility], [address] [place], [address], 04/07/2024 15:47:30 lipid panel, serum 2023 024 [facility], [address] [place], [address], 09/23/2023 12:52:22 CMP, serum or plasma 2023 024 [facility], [address] [place], [address], 09/23/2023 12:52:43 CBC w/ auto diff 2023 024 [facility], [address] [place], [address], 09/23/2023 11:21:57 TSH, serum or plasma 2023 024 [facility], [address] [place], [address], 09/23/2023 13:11:47 T4, free, serum 2023 024 [facility], [address] [place], [address], 09/23/2023 12:54:25 Referral None recorded. Procedures None recorded. Surgeries None recorded. Imaging None recorded. Medication Orders meloxicam 15 mg tablet 2023 [id number], [address], [place], [place], [id number], 09/22/2023 10:59:27 Patient TargetsNo targets recorded. Patient Instructions Encounter Date Encounter Id Patient Instructions Last Modified By Organization Details Last Modified Time 09/22/2023 [id number] Follow-up for mi ld essential hypertension controlled with salt restriction, hyperlipidemia and degenerative joint disease. Clinically stable. Will check blood work consisting of a CBC, CMP, lipid and thyroid. Continue on current Rx follow-up in six months. Next Appointment: 6 Months Approximate Date: 03/20/2024 Portions of the record may have been created with voice recognition software. Occasional wrong-word or s ound-a-like substitutions may have occurred due to the inherent limitations of voice recognition software. Read the chart carefully and recognize, using context, where substitutions have occurred. [email or web address] Not available 09/22/2023 10:59:29 03/22/2024 [id number] dementia rating scale-2* [email or web address] Not available 03/22/2024 11:08:57 alcohol misuse* [email or web address] Not available 03/22/2024 11:08:57 depression screening* Not available 03/22/2024 11:08:57 multi-dimensiona l health assessment questionnaire* Not available 03/22/2024 11:08:57 Personalized [facility] lt Plan and Screening Recommendations Advance Directives - Do you have one? No Not interested at this time Advance Directives - Do we have your advance directive on file in your health record? Primary Prevention/Interven tion (prevents or decreases the chance of common diseases from occurring) Smoking Risk: Non Smoker Alcohol Misuse Screening: Negative Weight: Overweight try to lose 10% of your body weight Physical activity: Need more exercise/physical activity Nutrition: Average Eat heart healthy diet Fall Risk (screened today): Low Vaccines Pneumococcal: Recommended today, but you have declined Influenza: Recommended today, but you have declined Chronic Disease Risks Stroke: Intermediate Risk Active diagnosis, Continue current treatment plan Heart Attack: Intermediate Risk Active diagnosis, Continue current treatment plan Clogging of the Arteries: Intermediate Risk Active diagnosis, Continue current treatment plan Diabetes: Intermediate Risk Drastically limit sugar and products made with any type of flour (bread, pasta, cereal, cookies, crackers, etc.) Secondary Prevention/Interven tion (detects treatable diseases before they may cause symptoms, disability, or ) Breast Cancer Screening with mammogram: Recommended today Cervical/Uterine/Ov chaya Cancer Screening: No screening necessary Osteoporosis Screening: Recommended today Date Screening Last Performed: Colon Cancer Screening: Colonoscopy due 2025 Date Screening Last Performed: _2020____ Eye Disease Screening: Your next exam in: goes every 2 yrs Dementia Risk: Low I have no recommendations Depression Screening: Negative Active diagnosis, Continue current treatment plan [email or web address] Not available 03/22/2024 10:58:41 Medicare [facility] s evaluation risk assessment stable. Follow-up for hypertension, hyperlipidemia, degenerative arthritis and obesity class one. Check blood work in the form of CBC, CMP, lipid, thyroid and vitamin-D level. Does need a mammogram and bone density scan. Is not due for colonoscopy until next year. 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 Does not wish to have any of the other preventative type of immunizations. Will continue on current Rx follow-up in six months. Additional Orders - Directives - Recommendations 1. Mammogram 2. Bone density scan Follow Up: 6 Months Approximate Date: 09/18/2024 Created: Isi Tucker M.D. 03.22.2024 10:07 AM Portions of the record may have been created with voice recognition software. Occasional wrong-word or s ound-a-like substitutions may have occurred due to the inherent limitations of voice recognition software. Read the chart carefully and recognize, using context, where substitutions have occurred. [email or web address] Not available 03/22/2024 11:07:31 Reason for Referral None Reported. Results Created Date Observation Date Name Description Value Unit Range Abnormal Flag Note LastModifiedBy Organization Detail LastModifiedTime 09/23/19 24 09/23/2023 CBC/C OMPLE TE BLD COUNT W/DIF F white blood cells 5.1 x10'3 /uL 4.2-10 .8 Not Available [facility] (Lab) [address] [place], [address], 09/23/2023 11:21:56 09/23/19 24 09/23/2023 CBC/C OMPLE TE BLD COUNT W/DIF F red blood cells 4.56 x10'6 /uL 3.80-5 .20 Not Available [facility] (Lab) [address] [place], [address], 09/23/2023 11:21:56 09/23/19 24 09/23/2023 CBC/C OMPLE TE BLD COUNT W/DIF F hemoglobin 13.8 g/dL 12.0-1 5.6 Not Available [facility] (Lab) [address] [place], [address], 09/23/2023 11:21:56 09/23/19 24 09/23/2023 CBC/C OMPLE TE BLD COUNT W/DIF F hematocrit 40.9 % 35.7-4 5.7 Not Available [facility] (Lab) [address] [place], [address], 09/23/2023 11:21:56 09/23/19 24 09/23/2023 CBC/C OMPLE TE BLD COUNT W/DIF F mean red cell volume 89.7 fL 82.0-9 9.0 Not Available [facility] (Lab) [address] [place], [address], 09/23/2023 11:21:56 09/23/19 24 09/23/2023 CBC/C OMPLE TE BLD COUNT W/DIF F mean red cell hemoglobin 30.3 pg 27.0-3 3.0 Not Available [facility] (Lab) [address] [place], [address], 09/23/2023 11:21:56 09/23/19 24 09/23/2023 CBC/C OMPLE TE BLD COUNT W/DIF F mean RBC HGB concentratio n 33.7 g/dL 31.0-3 6.0 Not Available [facility] (Lab) [address] [place], [address], 09/23/2023 11:21:56 09/23/19 24 09/23/2023 CBC/C OMPLE TE BLD COUNT W/DIF F red cell distribution width 12.8 % 11.8-1 5.5 Not Available [facility] (Lab) [address] [place], [address], 09/23/2023 11:21:56 09/23/19 24 09/23/2023 CBC/C OMPLE TE BLD COUNT W/DIF F platelets 236 x10'3 /uL 150-40 0 Not Available [facility] (Lab) [address] [place], [address], 09/23/2023 11:21:56 09/23/19 24 09/23/2023 CBC/C OMPLE TE BLD COUNT W/DIF F mean platelet volume 11.0 fL 9.0-12 .4 Not Available [facility] (Lab) [address] [place], [address], 09/23/2023 11:21:56 09/23/19 24 09/23/2023 CBC/C OMPLE TE BLD COUNT W/DIF F neutrophils 46.4 % 39.0-7 2.0 Not Available [facility] (Lab) [address] [place], [address], 09/23/2023 11:21:56 09/23/19 24 09/23/2023 CBC/C OMPLE TE BLD COUNT W/DIF F lymphocytes 41.3 % 16.0-4 7.0 Not Available [facility] (Lab) [address] [place], [address], 09/23/2023 11:21:56 09/23/19 24 09/23/2023 CBC/C OMPLE TE BLD COUNT W/DIF F monocytes 8.0 % 5.0-12 .0 Not Available [facility] (Lab) [address] [place], [address], 09/23/2023 11:21:56 09/23/19 24 09/23/2023 CBC/C OMPLE TE BLD COUNT W/DIF F eosinophils 3.7 % 1.0-7. 0 Not Available [facility] (Lab) [address] [place], [address], 09/23/2023 11:21:56 09/23/19 24 09/23/2023 CBC/C OMPLE TE BLD COUNT W/DIF F basophils 0.4 % 0.0-2. 0 Not Available [facility] (Lab) [address] [place], [address], 09/23/2023 11:21:56 09/23/19 24 09/23/2023 CBC/C OMPLE TE BLD COUNT W/DIF F immature granulocytes 0.2 % 0.00-0 .50 Not Available [facility] (Lab) [address] [place], [address], 09/23/2023 11:21:56 09/23/19 24 09/23/2023 CBC/C OMPLE TE BLD COUNT W/DIF F neutrophils, absolute count 2.38 x10'3 /uL 1.5-8. 0 Not Available [facility] (Lab) [address] [place], [address], 09/23/2023 11:21:56 09/23/19 24 09/23/2023 CBC/C OMPLE TE BLD COUNT W/DIF F lymphocytes, absolute count 2.12 x10'3 /uL 1.07-3 .43 Not Available [facility] (Lab) [address] [place], [address], 09/23/2023 11:21:56 09/23/19 24 09/23/2023 CBC/C OMPLE TE BLD COUNT W/DIF F monocytes, absolute count 0.41 x10'3 /uL 0.29-0 .99 Not Available [facility] (Lab) [address] [place], [address], 09/23/2023 11:21:56 09/23/19 24 09/23/2023 CBC/C OMPLE TE BLD COUNT W/DIF F eosinophils, absolute count 0.19 x10'3 /uL 0.02-0 .53 Not Available [facility] (Lab) [address] [place], [address], 09/23/2023 11:21:56 09/23/19 24 09/23/2023 CBC/C OMPLE TE BLD COUNT W/DIF F basophils, absolute count 0.02 x10'3 /uL 0.01-0 .08 Not Available [facility] (Lab) [address] [place], [address], 09/23/2023 11:21:56 09/23/19 24 09/23/2023 CBC/C OMPLE TE BLD COUNT W/DIF F immature granulocytes ,absolute 0.01 x10'3 /uL 0.00-0 .05 Not Available [facility] (Lab) [address] [place], [address], 09/23/2023 11:21:56 09/23/19 24 09/23/2023 CBC/C OMPLE TE BLD COUNT W/DIF F nucleated red blood cells 0.0 % -0 Not Available [facility] (Lab) [address] [place], [address], 09/23/2023 11:21:56 09/23/19 24 09/23/2023 CBC/C OMPLE TE BLD COUNT W/DIF F NRBC# 0.00 x10'3 /uL Not Available [facility] (Lab) [address] [place], [address], 09/23/2023 11:21:56 09/23/19 24 09/23/2023 LIPID PANEL cholesterol 208 mg/dL 140-19 9 high NIH MARTIN NSUS RECOM MENDA TION FOR ALLEN STERO L: ADULT CHILD LOW RISK: <200 <170 BORDE RLINE : <200- 239 ----- HIGH RISK: >240 >200 Not Available [facility] (Lab) [address] [place], [address], 09/23/2023 12:52:22 09/23/19 24 09/23/2023 LIPID PANEL triglyceride s 109 mg/dL 0-150 NIH MARTIN NSUS REPOR T RECOM MENDA TION FOR TRIGL YCERI CRISTEL: ADULT CHILD LOW RISK: <150 ----- BODER LINE: 150-1 99 ----- HIGH RISK: >200 ----- Not Available [facility] (Lab) [address] [place], [address], 09/23/2023 12:52:22 09/23/19 24 09/23/2023 LIPID PANEL HDL cholesterol 63 mg/dL 40- Not Available [facility] (Lab) [address] [place], [address], 09/23/2023 12:52:22 09/23/19 24 09/23/2023 LIPID PANEL LDL cholesterol, calculated 123 mg/dL 0-130 NIH MARTIN NSUS REPOR T RECOM MENDA TIONS FOR LDL: ADULT CHILD LOW RISK <130 <110 (OPTI MAL LDL) <100 ----- BORDE RLINE : 130-1 59 ----- HIGH RISK: >160 >130 A TRIGL YCERI DE RESUL T >400 INVAL IDATE S THE CALCU LATIO N FOR LDL FRACT IONAT ION - THE LDL RESUL T WILL NOT BE REPOR EUSEBIO. Not Available [facility] [facility] [address] [place], [address], 09/23/2023 12:52:22 09/23/19 24 09/23/2023 COMPR EHENS RODERICK METAB OLIC PANEL sodium 140 mmol/ L 137-14 5 Not Available [facility] (Lab) [address] [place], [address], 09/23/2023 12:52:43 09/23/19 24 09/23/2023 COMPR EHENS RODERICK METAB OLIC PANEL potassium 4.2 mmol/ L 3.5-5. 1 Not Available [facility] (Lab) [address] [place], [address], 09/23/2023 12:52:43 09/23/19 24 09/23/2023 COMPR EHENS RODERICK METAB OLIC PANEL chloride 106 mmol/ L 98-107 Not Available [facility] (Lab) [address] [place], [address], 09/23/2023 12:52:43 09/23/19 24 09/23/2023 COMPR EHENS RODERICK METAB OLIC PANEL carbon dioxide 28 mmol/ L 22-30 Not Available [facility] (Lab) [address] [place], [address], 09/23/2023 12:52:43 09/23/19 24 09/23/2023 COMPR EHENS RODERICK METAB OLIC PANEL anion gap 10.2 mmol/ L 14-22 low Not Available [facility] (Lab) [address] [place], [address], 09/23/2023 12:52:43 09/23/19 24 09/23/2023 COMPR EHENS RODERICK METAB OLIC PANEL glucose 116 mg/dL 70-99 high Not Available [facility] (Lab) [address] [place], [address], 09/23/2023 12:52:43 09/23/19 24 09/23/2023 COMPR EHENS RODERICK METAB OLIC PANEL BUN 29 mg/dL 8-19 high Not Available [facility] (Lab) [address] [place], [address], 09/23/2023 12:52:43 09/23/19 24 09/23/2023 COMPR EHENS RODERICK METAB OLIC PANEL creatinine 0.78 mg/dL 0.66-1 .25 Not Available [facility] (Lab) [address] [place], [address], 09/23/2023 12:52:43 09/23/19 24 09/23/2023 COMPR EHENS RODERICK METAB OLIC PANEL GFR >60 Refer ence Range : [place] ge GFR Healt hy Adult : >60 mL/mi n/1.7 3 m2 Chron ic Kidne y Disea se: 15-60 mL/mi n/1.7 3 m2 Kidne y Failu re: <15/m L/min /1.73 m2 www.n iddk. nih.g ov The MDRD study equat ion has not been valid ated in child verena <18 years of age; pregn ant women ; the elder ly >85 years of age; or in some racia l or ethni c subgr oups, such as Hispa nics. Outsi de the valid ated migdalia eters , estim ated GFR is less accur ate, requi ring clini siri judgm ent on a case- by-ca se basis . Clini siri inter preta tion for other races and ages must be made by the clini yong. The MDRD study equat ion has not been valid ated for the evalu ation of serum creat inine relat ed to nutri oliver l statu s or medic ation usage . For perso ns <18 years of age, a pedia tric GFR calcu lator is avail able on the [facility] websi te: https ://ophelia w.sabino arias.o edwardo/pr ofess ional s/kdo qi/gf r_cal culat or Not Available [facility] (Lab) [address] [place], [address], 09/23/2023 12:52:43 09/23/19 24 09/23/2023 COMPR EHENS RODERICK METAB OLIC PANEL alkaline phosphatase 81 U/L 38-126 Not Available [facility] (Lab) [address] [place], [address], 09/23/2023 12:52:43 09/23/19 24 09/23/2023 COMPR EHENS RODERICK METAB OLIC PANEL alanine aminotransfe rase 29 U/L 0-35 Not Available [facility] (Lab) [address] [place], [address], 09/23/2023 12:52:43 09/23/19 24 09/23/2023 COMPR EHENS RODERICK METAB OLIC PANEL aspartate aminotransfe rase 29 U/L 15-37 Not Available [facility] (Lab) [address] [place], [address], 09/23/2023 12:52:43 09/23/19 24 09/23/2023 COMPR EHENS RODERICK METAB OLIC PANEL bilirubin, total 0.70 mg/dL 0.20-1 .30 Not Available [facility] (Lab) [address] [place], [address], 09/23/2023 12:52:43 09/23/19 24 09/23/2023 COMPR EHENS RODERICK METAB OLIC PANEL calcium 9.1 mg/dL 8.4-10 .2 Not Available [facility] (Lab) [address] [place], [address], 09/23/2023 12:52:43 09/23/19 24 09/23/2023 COMPR EHENS RODERICK METAB OLIC PANEL total protein 7.1 g/dL 6.3-8. 2 Not Available [facility] (Lab) [address] [place], [address], 09/23/2023 12:52:43 09/23/19 24 09/23/2023 COMPR EHENS RODERICK METAB OLIC PANEL albumin 4.2 g/dL 3.0-4. 4 Not Available [facility] (Lab) [address] [place], [address], 09/23/2023 12:52:43 09/23/19 24 09/23/2023 COMPR EHENS RODERICK METAB OLIC PANEL globulin 2.9 g/dL 2.6-4. 2 Not Available [facility] (Lab) [address] [place], [address], 09/23/2023 12:52:43 09/23/19 24 09/23/2023 COMPR EHENS RODERICK METAB OLIC PANEL A/G ratio 1.4 ratio 1.0-2. 0 Not Available [facility] (Lab) [address] [place], [address], 09/23/2023 12:52:43 09/23/19 24 09/23/2023 T4 FREE free T4 1.22 NG/dL 0.78-2 .19 Not Available [facility] (Lab) [address] [place], [address], 09/23/2023 12:54:25 09/23/19 24 09/23/2023 TSH thyroid-stim ulating hormone 3.380 uIU/m L 0.465- 4.680 Not Available [facility] (Lab) [address] [place], [address], 09/23/2023 13:11:47 04/18/20 24 04/19/2024 LIPID PANEL , STAND JUDITH cholesterol, total 197 mg/dL <200 normal Not Available [address], [address], 04/19/2024 05:49:57 04/18/20 24 04/19/2024 LIPID PANEL , STAND JUDITH HDL cholesterol 54 mg/dL > or = 50 normal Not Available [address], [address], 04/19/2024 05:49:57 04/18/20 24 04/19/2024 LIPID PANEL , STAND JUDITH triglyceride s 96 mg/dL <150 normal Not Available [address], [address], 04/19/2024 05:49:57 04/18/20 24 04/19/2024 LIPID PANEL , STAND JUDITH LDL-choleste rol 123 mg/dL _(siri c) high Refer ence range : <100 Dora able range <100 mg/dL for prima ry preve ntion ; <70 mg/dL for patie nts with CHD or diabe tic patie nts with > or = 2 CHD risk facto rs. LDL-C is now calcu lated using the Patricia n-Hop kins calcu latshelia n, which is a valid ated novel metho d provi ding dago r accur acy than the Fried bertha equat ion in the estim ation of LDL-C . Patricia duncan SS et al. MICHELLE. 2013; 310(1 9): 2061- 2068 (http ://ed ucati on.Qu David elYanados. com/f aq/FA Q164) Not Available [facility] [address] [address] [place], [address], 04/19/2024 05:49:57 04/18/20 24 04/19/2024 LIPID PANEL , STAND JUDITH chol/HDLC ratio 3.6 (calc ) <5.0 normal Not Available [facility] [address] [address] [address], [place], [address], 04/19/2024 05:49:57 04/18/2004/19/2024 LIPID PANEL , STAND JUDITH non HDL cholesterol 143 mg/dL _(siri c) <130 high For patie nts with diabe zora plus 1 major ASCVD risk facto r, treat ing to a non-H DL-C goal of <100 mg/dL (LDL- C of <70 mg/dL ) is consi dered a thera peuti c optio n. Not Available [facility] [address] [address] [place], [address], 04/19/2024 05:49:57 04/18/2004/19/2024 COMPR EHENS RODERICK METAB OLIC PANEL glucose 110 mg/dL 65-99 high Fasti ng refer ence inter paramjit For someo ne witho ut known diabe zora, a gluco se value betwe en 100 and 125 mg/dL is consi stent with predi abete s and shoul d be confi rmed with a follo w-up test. Not Available [facility] [address] [address] [place], [address], 04/19/2024 05:49:59 04/18/2004/19/2024 COMPR EHENS RODERICK METAB OLIC PANEL urea nitrogen (BUN) 26 mg/dL 7-25 high Not Available [facility] [address] [address] [place], [address], 04/19/2024 05:49:59 04/18/20 24 04/19/2024 COMPR EHENS RODERICK METAB OLIC PANEL creatinine 0.78 mg/dL 0.50-1 .05 normal Not Available [address], [address], 04/19/2024 05:49:59 04/18/20 24 04/19/2024 COMPR EHENS RODERICK METAB OLIC PANEL eGFR 83 mL/mi n/1.7 3m2 > or = 60 normal Not Available [address], [address], 04/19/2024 05:49:59 04/18/20 24 04/19/2024 COMPR EHENS RODERICK METAB OLIC PANEL BUN/creatini ne ratio 33 (calc ) 6-22 high Not Available [address], [address], 04/19/2024 05:49:59 04/18/20 24 04/19/2024 COMPR EHENS RODERICK METAB OLIC PANEL sodium 139 mmol/ L 135-14 6 normal Not Available [address], [address], 04/19/2024 05:49:59 04/18/20 24 04/19/2024 COMPR EHENS RODERICK METAB OLIC PANEL potassium 4.2 mmol/ L 3.5-5. 3 normal Not Available [address], [address], 04/19/2024 05:49:59 04/18/20 24 04/19/2024 COMPR EHENS RODERICK METAB OLIC PANEL chloride 105 mmol/ L 98-110 normal Not Available [address], [address], 04/19/2024 05:49:59 04/18/20 24 04/19/2024 COMPR EHENS RODERICK METAB OLIC PANEL carbon dioxide 27 mmol/ L 20-32 normal Not Available [address] [place], [address], 04/19/2024 05:49:59 04/18/20 24 04/19/2024 COMPR EHENS RODERICK METAB OLIC PANEL calcium 8.8 mg/dL 8.6-10 .4 normal Not Available [address], [address], 04/19/2024 05:49:59 04/18/20 24 04/19/2024 COMPR EHENS RODERICK METAB OLIC PANEL protein, total 6.7 g/dL 6.1-8. 1 normal Not Available [address], [address], 04/19/2024 05:49:59 04/18/20 24 04/19/2024 COMPR EHENS RODERICK METAB OLIC PANEL albumin 4.1 g/dL 3.6-5. 1 normal Not Available [address], [address], 04/19/2024 05:49:59 04/18/20 24 04/19/2024 COMPR EHENS RODERICK METAB OLIC PANEL globulin 2.6 g/dL_ (calc ) 1.9-3. 7 normal Not Available [address], [address], 04/19/2024 05:49:59 04/18/20 24 04/19/2024 COMPR EHENS RODERICK METAB OLIC PANEL albumin/glob ulin ratio 1.6 (calc ) 1.0-2. 5 normal Not Available [address], [address], 04/19/2024 05:49:59 04/18/20 24 04/19/2024 COMPR EHENS RODERICK METAB OLIC PANEL bilirubin, total 0.9 mg/dL 0.2-1. 2 normal Not Available [address], [address], 04/19/2024 05:49:59 04/18/20 24 04/19/2024 COMPR EHENS RODERICK METAB OLIC PANEL alkaline phosphatase 72 U/L 37-153 normal Not Available [facility] [employer] [address], [address], 04/19/2024 05:49:59 04/18/20 24 04/19/2024 COMPR EHENS RODERICK METAB OLIC PANEL AST 16 U/L 10-35 normal Not Available [address], [address], 04/19/2024 05:49:59 04/18/20 24 04/19/2024 COMPR EHENS RODERICK METAB OLIC PANEL ALT 21 U/L 6-29 normal Not Available [address], [address], 04/19/2024 05:49:59 04/18/20 24 04/19/2024 CBC (INCL UDES DIFF/ PLT) white blood cell count 4.3 thous and/u L 3.8-10 .8 normal Not Available [address], [address], 04/19/2024 05:50:00 04/18/20 24 04/19/2024 CBC (INCL UDES DIFF/ PLT) red blood cell count 4.58 carolyn on/uL 3.80-5 .10 normal Not Available [address], [address], 04/19/2024 05:50:00 04/18/20 24 04/19/2024 CBC (INCL UDES DIFF/ PLT) hemoglobin 13.6 g/dL 11.7-1 5.5 normal Not Available [address], [address], 04/19/2024 05:50:00 04/18/20 24 04/19/2024 CBC (INCL UDES DIFF/ PLT) hematocrit 42.4 % 35.0-4 5.0 normal Not Available [address], [address], 04/19/2024 05:50:00 04/18/20 24 04/19/2024 CBC (INCL UDES DIFF/ PLT) MCV 92.6 fL 80.0-1 00.0 normal Not Available [address], [address], 04/19/2024 05:50:00 04/18/20 24 04/19/2024 CBC (INCL UDES DIFF/ PLT) MCH 29.7 pg 27.0-3 3.0 normal Not Available [facility] [address], [address], 04/19/2024 05:50:00 04/18/20 24 04/19/2024 CBC (INCL UDES DIFF/ PLT) MCHC 32.1 g/dL 32.0-3 6.0 normal For adult s, a sligh t decre ase in the calcu lated MCHC value (in the range of 30 to 32 g/dL) is most likel y not clini marleny wyman t; kashif er, it shoul d be inter prete d with cauti on in [facility] n with other red cell migdalia eters and the patie nt's clini siri condi tion. Not Available [employer] [address], [address], 04/19/2024 05:50:00 04/18/20 24 04/19/2024 CBC (INCL UDES DIFF/ PLT) RDW 12.6 % 11.0-1 5.0 normal Not Available [facility] [address], [address], 04/19/2024 05:50:00 04/18/20 24 04/19/2024 CBC (INCL UDES DIFF/ PLT) platelet count 192 thous and/u L 140-40 0 normal Not Available [facility] [address] [place], [address], 04/19/2024 05:50:00 04/18/20 24 04/19/2024 CBC (INCL UDES DIFF/ PLT) MPV 11.3 fL 7.5-12 .5 normal Not Available [address], [address], 04/19/2024 05:50:00 04/18/20 24 04/19/2024 CBC (INCL UDES DIFF/ PLT) absolute neutrophils 2172 cells /uL 1500-7 800 normal Not Available [facility] [address], [address], 04/19/2024 05:50:00 04/18/20 24 04/19/2024 CBC (INCL UDES DIFF/ PLT) absolute lymphocytes 1600 cells /uL 850-39 00 normal Not Available [address], [address], 04/19/2024 05:50:00 04/18/20 24 04/19/2024 CBC (INCL UDES DIFF/ PLT) absolute monocytes 391 cells /uL 200-95 0 normal Not Available [address], [address], 04/19/2024 05:50:00 04/18/20 24 04/19/2024 CBC (INCL UDES DIFF/ PLT) absolute eosinophils 129 cells /uL 15-500 normal Not Available [address], [address], 04/19/2024 05:50:00 04/18/20 24 04/19/2024 CBC (INCL UDES DIFF/ PLT) absolute basophils 9 cells /uL 0-200 normal Not Available [address], [address], 04/19/2024 05:50:00 04/18/20 24 04/19/2024 CBC (INCL UDES DIFF/ PLT) neutrophils 50.5 % normal Not Available [address], [address], 04/19/2024 05:50:00 04/18/20 24 04/19/2024 CBC (INCL UDES DIFF/ PLT) lymphocytes 37.2 % normal Not Available [address], [address], 04/19/2024 05:50:00 04/18/20 24 04/19/2024 CBC (INCL UDES DIFF/ PLT) monocytes 9.1 % normal Not Available [facility] [address], [address], 04/19/2024 05:50:00 04/18/20 24 04/19/2024 CBC (INCL UDES DIFF/ PLT) eosinophils 3.0 % normal Not Available [address], [address], 04/19/2024 05:50:00 04/18/20 24 04/19/2024 CBC (INCL UDES DIFF/ PLT) basophils 0.2 % normal Not Available [address], [address], 04/19/2024 05:50:00 04/18/20 24 04/19/2024 T4, FREE T4, free 1.0 NG/dL 0.8-1. 8 normal Not Available [address], [address], 04/19/2024 05:50:02 04/18/20 24 04/19/2024 TSH TSH 1.98 mIU/L 0.40-4 .50 normal Not Available [address], [address], 04/19/2024 05:50:03 04/18/20 24 04/19/2024 VITAM IN D,25- OH,TO PAUL,I A vitamin D,25-oh,tota l,ia 30 NG/mL 30-100 normal Vitam in D Statu s 25-OH Vitam in D: Defic iency : <20 ng/mL Insuf ficie ncy: 20 - 29 ng/mL Optim al: > or = 30 ng/mL For 25-OH Vitam in D testi ng on patie nts on D2-sears pplem entat ion and patie nts for whom quant itati on of D2 and D3 fract ions is requi red, the [facility] eD(TM ) 25-OH VIT D, (D2,D 3), LC/MS /MS is recom rose d: order code 32585 (true ents >2yrs ). See Note 1 Note 1 For addit ional infor gina davis refer to http: //[facility] krystal duncan.Cliff stDia gnost ics.c om/fa q/FAQ 199 (This link is being provi ded for infor jennifer watts/ kim amin purpo ses only. ) Not Available [facility] [address] [place], [address], 04/19/2024 05:50:04 06/08/19 24 06/05/2023 polys omnog sydni, titra tion study No observ ation record ed. [facility] [address] [place], [address], 2023 09:47:16 06/08/19 24 06/05/2023 polys omnog sydni, titra tion study No observ ation record ed. [email or web address] [facility] [address] [place], [address], 07/22/2023 09:39:35 Result Notes None recorded. Problems Name Problem SNOMED Code Status Onset Date Resolution Date Notes Provider Name and Address Organization Details Recorded Time Hyperlipide jermaine 70683503 Active 2020 Keyur Bo MD [address] [facility], [address], [place], [address] , [facility] [employer] 12:18:18 Essential hypertensio n 41540221 Active 2020 Keyur Bo MD [address], [address], [place], [address], [employer] 12:18:15 Depressive disorder 56012183 Active 2020 Keyur Bo MD [address], [address], [place], [address], [employer] 5 12:18:13 Obstructive sleep apnea syndrome 29276781 Active 2022 Keyur Bo MD [address], [address], [place], [address], [employer] 5 12:18:23 Osteoarthri tis 087773262 Active 2023 Keyur Bo MD [address], [address], [place], [address], [employer] 5 12:18:26 Obese class I 3143365259756 07 Active 2023 Keyur Bo MD [address], [address], [place], [address], [employer] 12:18:20 Vitamin D deficiency 27587460 Active 2023 Keyur Bo MD [address], [address], [place], [address], [employer] 12:18:30 Senile osteoporosi s 12354876 Active 2023 Shanthi Reynaga null, [employer] [facility] [employer] 14:50:49 Notes:Medical History: Depre ssion Early REM onset Obesity with mild OSAHS, AHI = 12, 01/08/23, on autoCPAP c/o IVRC Hypertension Hyperlipidemia Normocytic anemia Hip osteopenia Left knee pain Procedure History: Right arm skin biopsy 2021 Occupational History: Retired sales lady Problem Notes None recorded. Procedures Surgical History Date Name Laterality Status Provider Name and Address Organization Details Recorded Time 03/22/20 Medicare Wellness CPT Code, subsequent completed Caitlin Robbins RN [facility] [employer] 03/22/2024 10:50:57 12/31/19 21 Date of Last Colonoscopy completed Not Available [facility] 07/01/2022 22:49:24 12/31/19 21 Colon ca scrn not hi rsk ind completed Not Available [facility] 07/01/2022 22:49:25 10/09/19 21 Most Recent Bone Density completed Not Available [facility] 07/01/2022 22:49:24 Imaging Results None recorded. Procedure Notes None recorded. Medical Equipment None Reported. Allergies No known drug allergies Medications Name Sig Start Date Stop Date Status Note LastModified by Organization Details LastModified Time atorvastati n 40 mg tablet TAKE 1 TABLET BY MOUTH DAILYMU ST SCHEDULE AN APPOINTME NT FOR FURTHER REFILLS 2024 active Not Available Not Available Not Avai lable doxycycline hyclate 100 mg capsule TAKE 1 CAPSULE BY MOUTH TWICE DAILY 03/23 completed Not Available Not Available Not Available atorvastati n 20 mg tablet Take 2 tablets every day by oral route. 09/23 completed Not Available Not Available Not Available azithromyci n 250 mg tablet TAKE 2 TABLETS BY MOUTH EVERY DAY FOR 1 DAY THEN TAKE 1 TABLET BY MOUTH DAILY 10/11 completed Not Available Not Available Not Available benzonatate 200 mg capsule TAKE 1 CAPSULE BY MOUTH THREE TIMES DAILY 10/11 completed Not Available Not Available Not Available hydrocodone 5 mg-acetamin ophen 325 mg tablet TAKE 1 TABLET BY MOUTH EVERY 6 HOURS NEEDED FOR KNEE PAIN 09/06 completed Not Available Not Available Not Available meloxicam 15 mg tablet TAKE 1 TABLET BY MOUTH EVERY DAY active Not Available Not Available No t Available sulfamethox azole 800 mg-trimetho prim 160 mg tablet TAKE 1 TABLET BY MOUTH TWICE DAILY 03/23 completed Not Available Not Available Not Available Vitamin D2 1,250 mcg (50,000 unit) capsule Take 1 capsule every week by oral route. 09/11 completed Not Available Not Available Not Available Lexapro 10 mg tablet Take 1 tablet every day by oral route. 2024 active Not Available Not Available Not Avai lable Lexapro 20 mg tablet Take 1 tablet every day by oral route. 09/05 completed Not Available Not Available Not Available Multivitami n 50 Plus tablet Take 1 tablet every day by oral route. 12/16 completed Not Available Not Available Not Available Lexapro 5 mg tablet Take 2 tablets every day by oral route. 06/08 completed Not Available Not Available Not Available Aleve 1 tablet PRN active Not Available Not Available No t Available cannabidiol (CBD) oral oil Take by oral route. 03/23 completed Not Available Not Available Not Available Sutab 1.479-0.188 -0.225 gram tablet TAKE DIRECTED FOR BOWEL PREP FOR COLONOSCO PY 12/31 completed Not Available Not Available Not Available Vitals Date Recorded Heart rate Respiratory rate Provider N linda and Address Organization Details Last Updated DateTime 2023 71 /min 14 /min Keyur Bo MD [address] [place], [address] [employer] 2023 10:37:21 Date Recorded Body height Body mass index (BMI) Body weight Body temperature Heart rate Oxygen saturation Systolic And Diastolic Provider Name and Address Organization Details Last Updated DateTime 160.02 cm 32.7 kg/m2 26625.4 3 g 97.5 [degF] 71 /min 98 % 148/80 mm[Hg] Savana Cano [place] [employer] [facility] [employer] 4 10:22:26 Date Recorded Heart rate Oxygen saturation Heart rate Respiratory rate Provider Name and Address Organization Details Last Updated DateTime 09/07/2023 72 /min 95 % 72 /min 15 /min Keyur Bo MD [address] [facility] [address] [employer], [place], [address] , [facility] [employer] 09/07/2023 11:14:53 Date Recorded Body height Body mass index (BMI) Body weight Body temperature Systolic And Diastolic Provider Name and Address Organization Details Last Updated DateTime 09/07/2023 160.02 cm 32.6 kg/m2 09754 g 98.3 [degF] 138/76 mm[Hg] Savana Cano MA [facility] [employer] 4 10:34:14 Date Recorded Body height Body mass index (BMI) Body weight Heart rate Body temperature Oxygen saturation Systolic And Diastolic Provider Name and Address Organization Details Last Updated DateTime 4 165.1 cm 30.6 kg/m2 88301 g 74 /min 97.9 [degF] 98 % 124/80 mm[Hg] CHRISTOPHER Mathew [facility] 4 10:44:46 Date Recorded Heart rate Respiratory rate Provider N linda and Address Organization Details Last Updated DateTime 10/11/2024 67 /min 14 /min Keyur Bo MD [address] [facility] [address], [place], [address], [facility] 10/11/2024 12:23:34 Date Recorded Body height Body mass index (BMI) Body weight Body temperature Heart rate Oxygen saturation Systolic And Diastolic Provider Name and Address Organization Details Last Updated DateTime 5 165.1 cm 29.8 kg/m2 06608.0 3 g 97.9 [degF] 67 /min 97 % 124/78 mm[Hg] Olga Hicks MA [facility] 5 11:56:26 Date Recorded Body height Body mass index (BMI) Body weight Heart rate Body temperature Oxygen saturation Systolic And Diastolic Provider Name and Address Organization Details Last Updated DateTime 4 165.1 cm 30.1 kg/m2 99649.2 2 g 68 /min 97 [degF] 97 % 138/80 mm[Hg] Yovana Smith Justine [facility] 4 10:48:12 Social History Question Answer Notes LastModified by Organizat ion Details LastModified Time Tobacco Smoking Status Never Smoker Not Available [employer] 07/01/2022 22:49:10 Do You Have An Advance Directive? No [id number] Information not available 07/01/2022 Are You Blind Or Do You Have Difficulty Seeing? No [id number] Information not available 07/01/2022 What Is Your Level Of Caffeine Consumption? Moderate 1 Cup Of Coffee Daiy [id number] Information not available 07/01/2022 How Much Tobacco Do You Chew? None [id number] Information not available 07/01/2022 In The 14 Days Before Symptom Onset, Have You Had Close Contact With A Laboratory-meenu rmed COVID-19 While That Case Was Ill? No [id number] Information not available 07/01/2022 In The 14 Days Before Symptom Onset, Have You Had Close Contact With A Person Who Is Under Investigation For COVID-19 While That Person Was Ill? No [id number] Information not available 07/01/2022 Are You Deaf Or Do You Have Serious Difficulty Hearing? No [id number] Information not available 07/01/2022 What Type Of Diet Are You Following? REGULAR [id number] Information not available 07/01/2022 Which Illicit Or Recreational Drugs Have You Used? None [id number] Information not available 07/01/2022 Do You Have An Electrostatic Air Filter? No Information not available 2023 How Many Days Of Moderate To Strenuous Exercise, Like A Brisk Walk, Did You Do In The Last 7 Days? 0 [id number] Information not available 07/01/2022 Have There Been Any Changes To Your Family Or Social Situation? No [id number] Information not available 07/01/2022 What Is The Fluoride Status Of Your Home? Unknown [id number] Information not available 07/01/2022 Are There Any Guns Present In Your Home? No [id number].[id number] Information not available 07/01/2022 Do You Have A Humidifier? Yes Information not available 2023 Do You Use Insect Repellent Routinely? Yes [id number] Information not available 07/01/2022 Where Do You Live? [place] MIGRATION.[id number] Information not available 07/01/2022 Are You Able To Care For Yourself? Yes [email or web address] Information not available 03/22/2024 Are You Blind Or Do Yo Have Difficulty Seeing? No [email or web address] Information not available 03/22/2024 Are You Deaf Or Do You Have Serious Difficulty Hearing? No [email or web address] Information not available 03/22/2024 Live Alone Of With Others? With Others [email or web address] Information not available 03/22/2024 Do You Have A Medical Power Of Unit Technician? No MIGRATION.51219 [id number] Information not available 07/01/2022 Do You Have Moisture Problems In Your Home? No Information not available 2023 What Was The Date Of Your Most Recent Tobacco Screening? 10/11/2024 [email or web address] Information not available 10/11/2024 Do You Have Any Pets? Yes MIGRATION.21051 [id number] Information not available 07/01/2022 What Is Your Relationship Status? MIGRATION.66582 11703 Information not available 07/01/2022 Do You Use Your Seat Belt Or Car Seat Routinely? Yes MIGRATION.40192 99294 Information not available 07/01/2022 Do You Have Smoke And Carbon Monoxide Detectors In Your Home? Yes MIGRATION.32539 56667 Information not available 07/01/2022 Are You Passively Exposed To Smoke? No MIGRATION.32645 25778 Information not available 07/01/2022 Are There Any Smokers In Your House? No MIGRATION.94866 95636 Information not available 07/01/2022 How Much Tobacco Do You Smoke? No MIGRATION.66888 73778 Information not available 07/01/2022 What Types Of Sporting Activities Do You Participate In? None MIGRATION.10558 32811 Information not available 07/01/2022 Do You Use Sunscreen Routinely? No MIGRATION.29894 02975 Information not available 07/01/2022 Has Tobacco Cessation Counseling Been Provided? No N/A MIGRATION.11522 82311 Information not available 07/01/2022 How Many Years Have You Smoked Tobacco? 0 MIGRATION.30190 88468 Information not available 07/01/2022 Have You Recently Traveled Abroad? No MIGRATION.64749 57692 Information not available 07/01/2022 Do You Have Difficulty Walking Or Climbing Stairs? No MIGRATION.51374 53689 Information not available 07/01/2022 Do You Have Any Dietary Restrictions? No MIGRATION.75030 34857 Information not available 07/01/2022 Sex: Unknown Functional Status Question Answer Note LastModified by Organizat ion Details LastModified Time Do you or have you ever used smokeless tobacco? Never used smokeless tobacco MIGRATION.84370 66561 Information not available 07/01/2022 Have you been exposed to chemicals or toxins? Not that aware of Information not available 09/07/2023 Do you have transportation difficulties? No MIGRATION.57244 46254 Information not available 07/01/2022 Are you able to care for yourself independently? Yes MIGRATION.61060 72591 Information not available 07/01/2022 Do you have difficulty dressing, bathing, grooming, or toileting? No MIGRATION.88517 70620 Information not available 07/01/2022 Do you or have you ever used e-cigarettes or vape? Never used electronic cigarettes MIGRATION.62297 01165 Information not available 07/01/2022 What is your exercise level? Occasional active lifestyle MIGRATION.14680 58311 Information not available 07/01/2022 Do you use any illicit or recreational drugs? No MIGRATION.35735 24811 Information not available 07/01/2022 Do you or have you ever used any other forms of tobacco or nicotine? No MIGRATION.32688 46622 Information not available 07/01/2022 What is your level of alcohol consumption? None MIGRATION.20623 20601 Information not available 07/01/2022 Are you able to walk independently without assistance or assistive devices? YESWOREST MIGRATION.34120 49838 Information not available 07/01/2022 Do you have difficulty doing errands alone? No MIGRATION.56040 72327 Information not available 07/01/2022 What is your occupation? retired MIGRATION.12085 29309 Information not available 07/01/2022 Mental Status Question Answer Note LastModified by Organizat ion Details LastModified Time Do you feel stressed (tense, restless, nervous, or anxious, or unable to sleep at night)? [id number] MIGRATION.[id number] 26 Information not available 07/01/2022 Do you have difficulty concentrating, remembering or making decisions? No MIGRATION.[id number] 26 Information not available 07/01/2022 Family History Relationship Description Onset Age of this Age Resolved Age Notes LastModified by Organization Details LastModified Time Father Diabetes mellitus 92 MIGRATION.034 [id number] Not available 07/01/2022 22:49:25 Father Coronary arterioscler osis 92 MIGRATION.022 [id number] Not available 07/01/2022 22:49:25 Mother Malignant neoplasm of breast 85 MIGRATION.022 [id number] Not available 07/01/2022 22:49:25 Mother Diabetes mellitus 85 MIGRATION.398 [id number] Not available 07/01/2022 22:49:25 Brother Malignant neoplasm of colon MIGRATION.648 [id number] Not available 07/01/2022 22:49:25 Sister Carcinoma of genitourinar y organ MIGRATION.178 [id number] Not available 07/01/2022 22:49:25 Sister Obstructive sleep apnea syndrome [email or web address] Not available 2022 10:40:05 Medical History Condition Response NERVE DISEASE N BLINDNESS N RHEUMATIC FEVER N KIDNEY STONES N BLADDER PROBLEMS N MRSA N OTHER # 1 N POLIO N LUNG DISEASE/DISORDER N HISTORY OF DRUG ABUSE N RADIATION / CHEMOTHERAPY N COPD N Other # 2 N BLOOD DISEASES N EAR OR HEARING PROBLEMS N MUMPS N SHINGLES N DEPRESSION (INCLUDING POST ) Y BOWEL PROBLEMS N STROKE/TIA N ULCERS N BENIGN PROSTATIC HYPERPLASIA N MEASLES N HYPOTENSION N MYOCARDIAL INFARCTION N OBESITY N GERD/NAUSEA N ANEURYSM N URINARY/BLADDER/KIDNEY PROBLEMS N CORONARY ARTERY DISEASE (CAD) N ADDICTION CONCERNS N Impotence N ENDOMETRIOSIS N USE OF BLOOD THINNERS N SKIN PROBLEMS N GASTROINTESTINAL DISORDER N PERIPHERAL VASCULAR DISEASE N MUSCLE,JOINT OR BONE PROBLEMS N GASTROINTESTINAL BLEEDING N BLOOD CLOTS N ASTHMA N CATARACTS N ERECTILE DYSFUNCTION N VARICOSITIES N GI PROBLEMS N Low Testosterone N INFERTILITY N AIDS/HIV N CHEMOTHERAPY / RADIATION N LIVER DISEASE N MALE HYPOGONADISM N HYPERTENSION N Deficiency N TOURETTE'S N ANXIETY DISORDER N BLOOD TRANSFUSION N ANEMIA/BLOOD DISORDER N CHRONIC EAR INFECTIONS N BRONCHITIS N TUBERCULOSIS N GLAUCOMA N FOOT PROBLEM N DIVERTICULITIS N SLEEP APNEA N CHICKENPOX N INFECTIOUS DISEASE N PROSTATE N HEART ARRHYTHMIA N INSOMNIA N HIGH CHOLESTEROL / HYPERLIPIDEMIA Y EYE PROBLEMS N HYPERTHYROIDISM N EDEMA N CHRONIC PAIN SYNDROME N HYPOTHYROIDISM N CAROTID BLOCKAGE N CONSTIPATION N BACK / NECK PROBLEMS N HAVE YOU BEEN HOSPITALIZED OR SEEN IN [facility] IN THE PAST YEAR ? N ATHEROSCLEROSIS N BREAST PROBLEMS N DIALYSIS N ECZEMA N OSTEOPOROSIS N ARTHRITIS N NO SIGNIFICANT PAST MEDICAL HISTORY N APPENDICITIS N DIABETES, TYPE N BAD TEETH N ENT N HEARTBURN / REFLUX N AUTISM SPECTRUM DISORDER (ASD) N HEPATITIS / LIVER DISEASE N GOUT N SLEEP DISORDER N ALZHEIMER'S DISEASE N Brain Problems N DEMENTIA N HERPES N SEIZURES/EPILEPSY N HEADACHES/MIGRAINES N VASCULAR DISEASE N PACEMAKER N Blood Disorder N DIZZINESS N HEART DISEASE/HEART PROBLEMS N KIDNEY DISEASE N MULTIPLE SCLEROSIS N CANCER: SPECIFY N CARDIAC ARRHYTHMIA N ATRIAL FIBRILLATION N Gall Stones N PULMONARY EMBOLISM N AUTOIMMUNE DISEASE N Gynecological History Statement/Question Response Date of Last Pap Date of Last Mammogram 10/08/2020 Date of Last Colonoscopy 12/30/2020 Most Recent Bone Density 10/08/2020 Obstetrics History GPAL:G 0 P 0 0 0 0 Immunizations Vaccine Type Date Status Note Provider Nam e and Address Organization Details Recorded Time SARS-COV-2 (COVID-19) vaccine, UNSPECIFIED 1 completed Not Available [facility] 06/14/2023 02:11:57 SARS-COV-2 (COVID-19) vaccine, UNSPECIFIED 1 completed Not Available [facility] 06/14/2023 02:11:57 Past Encounters Encounter ID Performer Location Encounter Start Date Encounter Closed Date Diagnosis/Indication Diagnosis SNOMED-CT Code Diagnosis ICD10 Code Diagnosis IMO Codes Diagnosis Note [id number] Isi Tucker MD [facility] [address] [address] 08/22/2020 00:00:00 08/22/2020 14:45:27 [id number] _ATHN_MIGR ATION_1 _ATHENA_M IGRATION_ DEFAULT_1 _1 , 10/23/2020 00:00:00 10/23/2020 10:37:10 [id number] Isi Tucker MD [facility] [address] [address] 02/13/2021 00:00:00 02/13/2021 10:33:57 [id number] Isi Tucker MD [facility] [address] [address] 09/11/2021 00:00:00 09/11/2021 12:41:21 [id number] Isi Tucker MD [facility] [address] [address] 12/24/2021 00:00:00 12/24/2021 16:16:23 [id number] Isi Tucker MD [facility] [address] [address] 03/23/2022 00:00:00 03/23/2022 15:21:26 [id number] Isi Tucker MD [facility] [address] [address] 09/23/2022 10:32:40 09/23/2022 11:02:05 Essential hypertension 87073262 I10 Hyperlipidemia 74993104 E78.5 Depressive disorder 3548 9007 F32.A [id number] Isi Tucker MD [facility] [address] [address] 12/16/2022 10:34:24 12/16/2022 11:25:53 Essential hypertension 31517267 I10 Hyperlipidemia 90205637 E78.5 Obstructiv e sleep apnea syndrome 72219562 G47.33 [id number] Eusebio Ozuna MD [facility] [address] [place] [address] 03/17/2023 09:23:57 03/17/2023 10:24:18 Pain of left knee region 2695176288 23926 M25.098 [id number] Isi Tucker MD [facility] [address] [address] 03/24/2023 10:29:57 03/24/2023 11:04:26 Essential hypertension 60250571 I10 Hyperlipidemia 30334517 E78.5 Obstructiv e sleep apnea syndrome 95136649 G47.33 Strain of knee 555796555 1 03 S86.911A [id number] Keyur Bo MD S_[address] [address] 03/30/2023 09:36:46 03/31/2023 08:59:42 Obstructive sleep apnea syndrome 77806871 G47.33 G47.36 G47.61 [id number] Keyur Bo MD [facility] [address] [address] 2023 10:11:29 06/09/2023 08:42:50 Obstructive sleep apnea syndrome 99075888 G47.33 [id number] Keyur Bo MD [facility] [address] [address] 09/07/2023 10:07:09 09/07/2023 13:03:57 Obstructive sleep apnea syndrome 37469038 G47.33 [id number] Isi Tucker MD [facility] [address] [address] 09/22/2023 10:37:30 09/22/2023 11:08:20 Essential hypertension 19688291 I10 Hyperlipidemia 06274464 E78.5 Osteoarthritis 632008597 M19.90 Obese class I 7951290707 76084 E66.9 [id number] Isi Tucker MD [facility] [address] [address] 03/22/2024 10:36:29 03/22/2024 11:18:58 Adult health examination 469105844 Z00.00 Screening for disorder 079684646 Z13.9 Essential hypertension 71414358 I10 Hyperlipidemia 37569910 E78.5 Osteoarthritis 462214310 M19.90 Obese class I 4672090969 02682 E66.9 Vitamin D deficiency 347 32217 E55.9 [id number] Keyur Bo MD [facility] [address] [place] [address] 10/11/2024 11:40:16 10/12/2024 15:45:03 Obstructive sleep apnea syndrome 69652548 G47.33 Health Concerns Section Related Observation LastModified by Organization Detai ls LastModified Time None Recorded Concern Status LastModified by Organization Details LastModified Time None Recorded Advance Directives Directive N: Payers Insurance Date Sequence Insurance Name Policy Number Policy Dunn Covered Member ID Dunn Member ID Guarantor Name 03/30/2023 1 [place] Carrie Cisneros [id number] Carrie Cisneros 03/30/2023 1 [place] [id number] Carrie Cisneros [id number] Carrie Cisneros 10/11/2024 1 [facility] (MEDICARE REPLACEMENT/ ADVANTAGE - PPO) [id number] Carrie Cisneros [id number] Carrie Cisneros 03/30/2023 2 [place] Carrie Cisneros [id number] Carrie Cisneros Notes Date Note Type Note Provider Name and Address Organization Details Recorded Time 4 text/html Primary care/Referring provider: Isi Tucker MD During the [facility] home sleep study on 01/08/23, AHI = 12 During the [facility] titration sleep study on 06/05/23, the patient uses a ResMed AirSense 11 autoset unit with heated humidification. The patient does not need the ramp to start low and go up slowly on the pressure. There is no xerostomia in a.m. There is no hose/mask condensation with water. The patient wears a Respironics small DreamWear nasal mask without chin strap. There is no claustrophobia, no nostril/nose bridge irritation, no facial rash, no facial numbness, no nosebleeding. The patient feels more refreshed upon waking and daytime alertness is improved. Energy levels are sustained for the remainder of the day. At home, the patient sleeps from 11 pm to 7 am and wakes up without an alarm. Snoring: heavy, since .Snorting: yesChoking: yesCoughing: yesGasping: yesGagging: yesSighing: yesWitnessed apnea: yesTwitching or jerking of leg(s), arm(s), body, head: yesTeeth grinding: noTeeth clenching: noSleeptalking: noSleepwalking: noSleep crying: noBedwetting: noTongue/lip/gum/cheek biting: noSleeping with open mouth: yesSleep paralysis: noHypnagogic hallucinations: noHypnopompic hallucinations: noVivid dreams: noDifficulty with sleep onset: noDifficulty with sleep maintenance: yesSleep interruptions: nocturia x 1Patient wakes up with: fatigue, headachesDaytime cataplexy: noMorning hypersomnolence: noAfternoon hypersomnolence: yesCaffeine sources in diet: coffee 1 cup per day, tea 2 glasses per day, soda 12 oz per day, chocolate 3 candies bar per day Associated medical and psychiatric conditions:Congestive heart failure: noCoronary artery disease: noMyocardial infarction: noHypertension: yesStroke: noBronchial asthma: noChronic obstructive pulmonary disease: noDepression: yesBipolar disorder: noAnxiety: noPanic disorder: noPosttraumatic stress disorder: noAttention deficit and hyperactivity disorder: noObsessive Compulsive disorder: noSchizophrenia: noSchizoaffective disorder: noPersonality disorder: noChronic analgesic use: noChronic sedative/hypnotic use: no EPWORTH SLEEPINESS SCALE (ESS) CHANCE OF DOZING SCORE0 = would never doze1 = slight chance of dozing2 = moderate chance of dozing3 = high chance of dozing SITUATION AND CHANCE OF DOZINGSitting and reading - 1Watching television - 1Sitting inactive in a public place (e.g. a theater or meeting) - 0As a passenger in a car for an hour without a break - 0Lying down to rest in the afternoon when circumstances permit - 1Sitting and talking to someone - 0Sitting quietly after lunch without alcohol - 1In a car, while stopped for a few minutes in the traffic - 0TOTAL SCORE 4Subjectively, patient has a moderate chance of dozing. Keyur Bo MD [address] [place] [address], [address], [place] - [facility] 2023 10:51:35 4 text/html Primary care/Referring provider: Isi Tucker MD During the [facility] home sleep study on 01/08/23, AHI = 12 At home since 08/03/23, the patient uses a ResMed AirSense 11 autoset unit with heated humidification. The patient does not need the ramp to start low and go up slowly on the pressure. There is no xerostomia in a.m. There is no hose/mask condensation with water. The patient wears ResMed extra small AirFit P10 nasal pillows without chin strap. There is no claustrophobia, no nostril/nose bridge irritation, no facial rash, no facial numbness, no nosebleeding. The patient feels more refreshed upon waking and daytime alertness is improved. Energy levels are sustained for the remainder of the day. At home, the patient sleeps from 11 pm to 7 am and wakes up without an alarm. Snoring: heavy, since .Snorting: yesChoking: yesCoughing: yesGasping: yesGagging: yesSighing: yesWitnessed apnea: yesTwitching or jerking of leg(s), arm(s), body, head: yesTeeth grinding: noTeeth clenching: noSleeptalking: noSleepwalking: noSleep crying: noBedwetting: noTongue/lip/gum/cheek biting: noSleeping with open mouth: yesSleep paralysis: noHypnagogic hallucinations: noHypnopompic hallucinations: noVivid dreams: noDifficulty with sleep onset: noDifficulty with sleep maintenance: yesSleep interruptions: nocturia x 1Patient wakes up with: fatigue, headachesDaytime cataplexy: noMorning hypersomnolence: noAfternoon hypersomnolence: yesCaffeine sources in diet: coffee 1 cup per day, tea 2 glasses per day, soda 12 oz per day, chocolate 3 candies bar per day Associated medical and psychiatric conditions:Congestive heart failure: noCoronary artery disease: noMyocardial infarction: noHypertension: yesStroke: noBronchial asthma: noChronic obstructive pulmonary disease: noDepression: yesBipolar disorder: noAnxiety: noPanic disorder: noPosttraumatic stress disorder: noAttention deficit and hyperactivity disorder: noObsessive Compulsive disorder: noSchizophrenia: noSchizoaffective disorder: noPersonality disorder: noChronic analgesic use: noChronic sedative/hypnotic use: no EPWORTH SLEEPINESS SCALE (ESS) CHANCE OF DOZING SCORE0 = would never doze1 = slight chance of dozing2 = moderate chance of dozing3 = high chance of dozing SITUATION AND CHANCE OF DOZINGSitting and reading - 0Watching television - 0Sitting inactive in a public place (e.g. a theater or meeting) - 0As a passenger in a car for an hour without a break - 0Lying down to rest in the afternoon when circumstances permit - 1Sitting and talking to someone - 0Sitting quietly after lunch without alcohol - 0In a car, while stopped for a few minutes in the traffic - 0TOTAL SCORE 1Subjectively, patient has a slight chance of dozing. Keyur Bo MD [address], [place], [address], [place] [facility] [employer] 09/07/2023 11:25:19 4 text/html Patient Name: Carrie Cuevas Of Service: Wednesday ( 09.22.2023 ): 1955 Age: 68 There has been approximately a 2 lb weight loss since 03/24/2023. This represents approximately a 1.1% change in weight. Weight change attributable to lifestyle changes. Vital Signs:Blood Pressure: Sitting Rt. Arm 124/80Pulse: Sitting 74 /min and RegularRespiratory Rate: 12Height 65 in or 1.7 mWeight 181 lb or 82.1 kgBMI 30.1Temperature: 97.9 F or 36.6 CPulse Oximetry: 98 % at rest on no oxygen Chief Complaint: Addressed in HPI Problems or conditions discussed in the HPI were the only ones reviewed during the encounter.Only social and family history addressed in the HPI were reviewed during this encounter. Attendant(s): HusbandConstitutional and Systemic Symptoms:none Medication Reconciliation: from medication list. Mxfntlbflrh76/08/2023: Home sleep study demonstrated mild obstructive sleep apnea. Recommendations would be to see one of the test preparation tutor and see if they would consider using auto PEEP or some other form of therapy. History of Present Illness #1. Essential Hypertension: Stage: Stage I Interval Neurological Complaints no headaches, dizziness, weakness, visual changes, ataxia, aphasia and apraxia. No shortness of breath, orthopnea or cardiovascular symptoms. No other symptoms related to end organ damage. Pressure has been under excellent control. Currently normal. No other end organ symptoms or findings. Therapy reviewed regarding management of hypertension and includes salt restriction. #2. Type II Hypercholesterolaemia: Currently taking medication and tolerating well. No interval complaints of any muscle pain or arthralgia. No significant liver changes with medications. Last lipid panel: fair control. Therapy reviewed regarding treatment of cholesterol management and include diet and Lipitor. #3. Hx of DJD stable. No interval complaints of any additional joint pain, swelling or redness. Joints most involved include knees. Medications: NSAIDS The DJD does interfere with ADL and ambulation. #4. Hx of obesity. Currently Class 1 Obesity BMI 30-34.99. Has tried numerous dietary support and supplements with no benefit. Instructed on the health consequences of the obese status particularly cancer - diabetes and heart disease. Discussed new modalities of weight loss including GLP-1 medications that are used to treat diabetes. Potential candidate for bariatric surgery: No. Wishes to be evaluated by Dietary: No and was offered to be evaluated and instructed by franchise specialist on weight loss diet. Active Medication ListLipitor 20 MG TABLET, FILM COATED Two Tablets DailyMeloxicam 15 MG TABLET One Daily Social HistoryDoes not smoke or drinkRetired worked in [employer] Family HistoryMother 85 from [place] breast and diabetesFather 92 from DM and CADFour sisters one with some form of genitourinary cancerTwo brothers one with colon cancer Isi Tucker MD [address] [facility] [address], [place], [address], [facility] [employer] 09/22/2023 10:59:47 4 text/html Patient Name: Carrie Cuevas Of Service: Wednesday ( 03.22.2024 ): 1955 Age: 68 Vital Signs:Blood Pressure: Sitting Rt. Arm 138/80Pulse: Sitting 68 /min and RegularRespiratory Rate: 16Height 65 in or 1.7 mWeight 181 lb or 82.1 kgBMI 30.1Temperature: 97 F or 36.1 CPulse Oximetry: 97 % at rest on no oxygen Chief Complaint: Addressed in HPI Problems or conditions discussed in the HPI were the only ones reviewed during the encounter.Only social and family history addressed in the HPI were reviewed during this encounter. A significant, separate E/M service was performed to evaluate the current and new problems. Attendant(s): NoneConstitutional and Systemic Symptoms:none Medication Reconciliation: from medication list. Ncycyufbudk71/08/2023: Home sleep study demonstrated mild obstructive sleep apnea. Recommendations would be to see one of the test preparation tutor and see if they would consider using auto PEEP or some other form of therapy. History of Present Illness Reviewed the findings of the preventative health visit. Addressed all areas with the patient, patient's family or caregivers. Preventative examinations and testing immunizations - vaccinations, colonic neoplasm screening, mammograms and DEXA Scan all reviewed and ordered where patient was amenable to the recommendations. Cognitive function was normal. Depression addressed and where necessary medications were adjusted or instituted. End of life and living will briefly discussed with patient and where these can be filled out and legally executed. Other blood and imaging studies were ordered if considered necessary. Other recommendations may be found in the encounter note. #1. Essential Hypertension: Stage: normal Interval Neurological Complaints no headaches, dizziness, weakness, visual changes, ataxia, aphasia and apraxia. No shortness of breath, orthopnea or cardiovascular symptoms. No other symptoms related to end organ damage. Pressure has been under excellent control. Currently normal. No other end organ symptoms or findings. Therapy reviewed regarding management of hypertension and includes salt restriction. #2. Type II Hypercholesterolaemia: Currently taking medication and tolerating well. No interval complaints of any muscle pain or arthralgia. No significant liver changes with medications. Last lipid panel: fair control. Therapy reviewed regarding treatment of cholesterol management and include diet. #3. Hx of DJD stable. No interval complaints of any additional joint pain, swelling or redness. Joints most involved include hands, knees and hips. Medications: Meloxicam The DJD does not interfere with ADL and ambulation. #4. Hx of obesity. Currently Class 1 Obesity BMI 30-34.99. Has tried numerous dietary support and supplements with no benefit. Instructed on the health consequences of the obese status particularly cancer - diabetes and heart disease. Discussed other modalities of weight loss no . Potential candidate for bariatric surgery: Yes. Wishes to be evaluated by Dietary: No and was offered to be evaluated and instructed by franchise specialist on weight loss diet. Active Medication ListLipitor 20 MG TABLET, FILM COATED Two Tablets DailyMeloxicam 15 MG TABLET One DailyLexapro 10 MG TABLET, FILM COATED Qd Social HistoryDoes not smoke or drinkRetired worked in [employer] Family HistoryMother 85 from [place] breast and diabetesFather 92 from DM and CADFour sisters one with some form of genitourinary cancerTwo brothers one with colon cancer Isi Tucker MD [address] [place], [place] [id number], [facility] [address], [place], [id number], [facility] - S [employer] 03/22/2024 11:09:03 5 text/html Primary care/Referring provider: Isi Tucker MD During the [facility] [place] home sleep study on 01/08/23, AHI = 12 At home since 09/07/23, the patient uses a [employer]Med AirSense 11 autoset unit with heated humidification. The patient does not need the ramp to start low and go up slowly on the pressure. There is no xerostomia in a.m. There is no hose/mask condensation with water. The patient wears [employer]Med extra small AirFit P10 nasal pillows without chin strap. There is no claustrophobia, no nostril/nose bridge irritation, no facial rash, no facial numbness, no nosebleeding. The patient feels more refreshed upon waking and daytime alertness is improved. Energy levels are sustained for the remainder of the day. At home, the patient sleeps from 11 pm to 7 am and wakes up without an alarm. Snoring: heavy, since .Snorting: yesChoking: yesCoughing: yesGasping: yesGagging: yesSighing: yesWitnessed apnea: yesTwitching or jerking of leg(s), arm(s), body, head: yesTeeth grinding: noTeeth clenching: noSleeptalking: noSleepwalking: noSleep crying: noBedwetting: noTongue/lip/gum/cheek biting: noSleeping with open mouth: yesSleep paralysis: noHypnagogic hallucinations: noHypnopompic hallucinations: noVivid dreams: noDifficulty with sleep onset: noDifficulty with sleep maintenance: yesSleep interruptions: nocturia x 1Patient wakes up with: fatigue, headachesDaytime cataplexy: noMorning hypersomnolence: noAfternoon hypersomnolence: yesCaffeine sources in diet: coffee 1 cup per day, tea 2 glasses per day, soda 12 oz per day, chocolate 3 candies bar per day Associated medical and psychiatric conditions:Congestive heart failure: noCoronary artery disease: noMyocardial infarction: noHypertension: yesStroke: noBronchial asthma: noChronic obstructive pulmonary disease: noDepression: yesBipolar disorder: noAnxiety: noPanic disorder: noPosttraumatic stress disorder: noAttention deficit and hyperactivity disorder: noObsessive Compulsive disorder: noSchizophrenia: noSchizoaffective disorder: noPersonality disorder: noChronic analgesic use: noChronic sedative/hypnotic use: no EPWORTH SLEEPINESS SCALE (ESS) CHANCE OF DOZING SCORE0 = would never doze1 = slight chance of dozing2 = moderate chance of dozing3 = high chance of dozing SITUATION AND CHANCE OF DOZINGSitting and reading - 1Watching television - 1Sitting inactive in a public place (e.g. a theater or meeting) - 0As a passenger in a car for an hour without a break - 0Lying down to rest in the afternoon when circumstances permit - 2Sitting and talking to someone - 0Sitting quietly after lunch without alcohol - 1In a car, while stopped for a few minutes in the traffic - 0TOTAL SCORE 5Subjectively, patient has a slight chance of dozing. Keyur Bo MD [address] [place] [address], [place], [address], [place] - [facility] 10/11/2024 12:25:56 OBGyn Episode No OBEpisode recorded.
== END 2025-03-30 10:29 | disposition home or self-care (01) ==
LOC: ANHFOHIMG 10:30
PROVIDERS: PCP Internal Medicine; Visit Provider Internal Medicine
DX: Z12.31 Encounter for screening mammogram for malignant neoplasm of breast (principal); M81.0 Age-related osteoporosis without current pathological fracture; M85.88 Other specified disorders of bone density and structure, other site; M85.851 Other specified disorders of bone density and structure, right thigh
CPT/HCPCS: 77063; 77067; 77080